=== PATIENT | female | born 1965 | race African-American/Black ===

== ENCOUNTER 2019-02-18 15:50 | Outpatient (CLI) | payer OTHER ==
--- NOTE | 2019-02-21 07:44 | MMO ---
Bilateral MAMMO Bilat Screen [facility]. CLINICAL HISTORY: Patient is 53 years old and is seen for screening. The patient has the following family history of breast cancer: aunt. The patient has no personal history of cancer. VIEWS: The views performed were: bilateral craniocaudal with tomosynthesis and bilateral mediolateral oblique with tomosynthesis. FILMS COMPARED: The present examination has been compared to a prior imaging study performed at [facility] on 02/13/2017. MAMMOGRAM FINDINGS: There are scattered fibroglandular densities. There is a stable lobular mass with associated coarse popcorn-like calcifications seen in the left breast. There are no suspicious masses, suspicious calcifications, or new areas of architectural distortion. IMPRESSION: THERE IS NO MAMMOGRAPHIC EVIDENCE OF MALIGNANCY. A ROUTINE FOLLOW-UP MAMMOGRAM IN 1 YEAR IS RECOMMENDED. THE RESULTS OF THIS EXAM WERE SENT TO THE PATIENT. ACR BI-RADS Category 2 - Benign finding MAMMOGRAPHY NOTE: 1. A negative mammogram report should not delay a biopsy if a dominant of clinically suspicious mass is present. 2. Approximately 10% to 15% of breast cancers are not detected by mammography. 3. Adenosis and dense breasts may obscure an underlying neoplasm.
== END 2019-02-18 15:51 | disposition home or self-care (01) ==
LOC: BICMAMMO 15:50
DX: Z12.31 Encounter for screening mammogram for malignant neoplasm of breast (principal); Z80.3 Family history of malignant neoplasm of breast
CPT/HCPCS: 77063; 77067

== ENCOUNTER 2019-09-27 17:57 | Inpatient (IN) | payer OTHER ==
[~2019-09-27 17:57] MED LIST: Iopamidol-370 76% 500 ML 1 ML ONE
[2019-09-27 18:23] LABS: #Basophils 0.1 thou/uL (0.0-0.2); #Eosinphils 0.2 thou/uL (0.0-0.7); #Lymphocytes 3.2 thou/uL (1.20-3.40); #Monocytes 0.4 thou/uL (0.11-0.59); %Basophils 0.8 % (0.0-1.0); %Eosinophils 1.8 % (0.0-10.0); %Lymphocytes 32.4 % (21.0-51.0); %Monocytes 4.1 % (0.0-10.0); %Neutrophils 60.8 % (42.0-75.0); Hemoglobin 11.8 g/dL (12.0-16.0); Mean Corpuscular HGB CONC 32.5 g/dL (32.0-36.0); Mean Corpuscular Hemoglobin 27.3 pg (27.0-31.0); Mean Corpuscular Volume 84.1 fL (78.0-98.0); Mean Platelet Volume 9.6 fL (7.4-10.4); Platelet Count 274 thou/uL (130-400); Red Blood Cell (RBC) Count 4.31 mill/uL (4.20-5.40); White Blood Cell (WBC) Count 9.8 thou/uL (4.8-10.8)
[2019-09-27 18:45] LABS: ALT (SGPT) 14 U/L (8-55); AST (SGOT) 15 U/L (5-34); Albumin 4.1 g/dL (3.5-5.0); Alkaline Phosphatase 94 U/L (40-110); Anion Gap 16 mmol/L (10-20); BUN (Urea Nitrogen) 16 mg/dL (9.8-20.1); Bilirubin, Total 0.3 mg/dL (0.2-1.2); Calc. Creatinine Clearance 0 mL/min (70-130); Calcium 9.2 mg/dL (7.8-10.44); Carbon Dioxide 24 mmol/L (22-29); Chloride 99 mmol/L (98-107); Estimated GFR-MDRD 65; Glucose 328 mg/dL (70-105); Lipase 62 U/L (8-78); Protein, Total 8.1 g/dL (6.0-8.3); Sodium 135 mmol/L (136-145)
--- NOTE | 2019-09-27 19:00 | RAD ---
PORTABLE CHEST: 09/27/19 HISTORY: Chest pain x1 week. Heart size and mediastinum are within normal limits. The lungs are clear of any infiltrates. No signi ficant bony findings. IMPRESSION: No active intrathoracic disease. POS: [facility]
[2019-09-27] MEDS ORDERED: Dextrose 50% Abboject 50 ML SYRINGE SLOW IVP PRN (20:17)
[2019-09-27] MEDS ORDERED: HYDROcodone/Acetaminophen 5/325 mg Tablet PO PRN (20:17)
[2019-09-27] MEDS ORDERED: Dextrose 5% in Water 1,000 ML IV PRN (20:17)
[2019-09-27] MEDS ORDERED: hydrALAZINE 20 MG/ML VIAL SLOW IVP PRN (20:20)
[2019-09-27] MEDS ORDERED: Morphine 2 MG/ML SYRINGE SLOW IVP PRN (20:20)
--- NOTE | 2019-09-27 20:58 | HP ---
PRESENTING CONSTANT: Chest pain. HISTORY OF PRESENT ILLNESS: Summer Camacho is a 54-year-old female with past medical history of hypertension, diabetes mellitus type 2 since 10 years, hyperlipidemia, who presented to the ED today because of recurrent chest pain since the last 1 week. Chest pain was initially on exertion that was progressively worsening and at rest. She describes the pain as a bandlike over the upper and across the chest wall. Nonradiating. She rates the pain as worse at about 10/10. Pain subsided a bit since presentation in the ED, and the pain is currently at 5/10. She denies any nausea, vomiting, or shortness of breath. She denies any recent travel. She states she has been having pain in her feet, but not in her calf since the last 3 weeks. She has been taking meloxicam daily for the feet pain. She denies any recent travel. She was started on estradiol for hot flashes symptoms 3 years ago post oophorectomy. There is no family history of CAD. She denies any previous tobacco use. The patient states she had similar chest pain symptoms and had a cardiac cath 3 years ago that shows about 40% lesion in the LAD. She has not had repeat testing since then. PAST MEDICAL HISTORY: Hypertension, diabetes, hyperlipidemia. PAST SURGICAL HISTORY: Significant for hysterectomy with bilateral oophorectomy. ALLERGIES: LISINOPRIL WELL PENICILLIN. HOME MEDICATIONS: See medication list that includes: 1. Metformin. 2. Tradjenta. 3. Levemir insulin. 4. Hydrochlorothiazide. 5. Multivitamin. 6. Estradiol. FAMILY HISTORY: She has a grand-uncle with history of coronary artery disease, but no immediate family with CAD or CVA. SOCIAL HISTORY: She resides in community. She is fully functional at baseline. No history of alcohol, tobacco, or illicit drug use. REVIEW OF SYSTEMS: All systems reviewed x14 were negative except as mentioned above. PHYSICAL EXAMINATION: VITAL SIGNS: Blood pressure of 152/91, pulse of 76, respiratory rate of 18, O2 saturation 95% on room air. GENERAL: Overweight middle-aged female, not in any distress. HEENT: Head is atraumatic, normocephalic. [place] conjunctivae and anicteric. NECK: No JVD. No carotid bruit. RESPIRATORY: Good air entry. No crepitation. CARDIOVASCULAR: S1, S2. Rate and rhythm regular. ABDOMEN: Full, soft, nontender. Bowel sounds positive. EXTREMITIES: No pedal edema. No calf tenderness. NEUROLOGIC: The patient is alert and conversant. No neurological focal motor deficit. LABORATORY DATA: Labs are reviewed. WBC 9.8, hemoglobin 11.8, sodium 135, creatinine 1.07. Troponin less than 0.01. Glucose 328. IMAGING DATA: Chest x-ray shows no active intrathoracic disease. EKG shows normal sinus rhythm, borderline T-wave flattening in lead IV. IMPRESSION: 1. Atypical chest pain. 2. Hypertension. 3. Diabetes mellitus with hyperglycemia. PLAN: We will admit the patient to tele observation. We will manage patient for the followin. Chest pain, may be due to acute coronary syndrome or unstable angina, but we will rule out PE given history of estradiol use. We will obtain CTA to rule out PE. We will do serial set of cardiac enzymes. We will switch patient for hydrochlorothiazide to metoprolol to lower the heart rate. We will obtain lipid panel in a.m. We will add nitroglycerin as well as start the patient on aspirin and Plavix now to see if relief of pain symptoms. The patient may need stress test if negative cardiac enzymes. 2. Hypertension, borderline. Follow with added metoprolol. 3. Diabetes mellitus, uncontrolled. We will start Levemir insulin sliding scale with Accu-Chek. We will start metformin [address] 4. DVT prophylaxis, subcutaneous Lovenox. 5. Advance directive, patient is a full code. TOTAL TIME SPENT: Greater than 60 minutes. Job ID: [id number]
[2019-09-27] MEDS ORDERED: Metoprolol Tartrate 25 MG TAB PO SCH (21:00)
--- NOTE | 2019-09-27 21:54 | CT ---
CT angiogram of chest performed with intravenous contrast enhancement with 3-D reconstructions HISTORY: Chest pain and shortness of breath. COMPARISON: None. FINDINGS: The lungs are clear of any infiltrative process. No pulmonary nodules or pleural effusions. The thoracic aorta is normal in caliber. There is slight nodularity in the anterior mediastinum this could represent residual thymic tissue or tiny nodes. The thoracic aorta is normal in caliber without signs of dissection. Coronary calcifications are pres ent. There is fair pulmonary artery opacification peripheral emboli are not definitely excluded but no central embolus is seen. The visualized liver parenchyma shows no focal findings. There is a small hiatal hernia is seen. IMPRESSION: 1. No CT evidence for pulmonary embolus. Smaller peripheral emboli are not excluded. 2. Coronary calcifications.
[2019-09-27 21:57] LABS: Troponin I Less than 0.010 ng/mL (< 0.028)
[2019-09-27] MEDS: Sodium Chloride 0.9% 1,000 ML IV SCH (22:17)
[2019-09-27] MEDS: Famotidine 20 MG TAB PO SCH (22:39)
[2019-09-27] MEDS: Insulin Glargine 25 UNITS in Pre-Filled Syringe 1 EACH SC SCH (23:44)
[2019-09-28] MEDS: Nitroglycerin 2% Ointment 1 INCH/1 GM Packet TOP SCH ×3 (00:36→13:36)
[2019-09-28 01:32] LABS: Troponin I Less than 0.010 ng/mL (< 0.028)
[2019-09-28 05:35] LABS: Anion Gap 15 mmol/L (10-20); BUN (Urea Nitrogen) 12 mg/dL (9.8-20.1); Calc. Creatinine Clearance 112 mL/min (70-130); Calcium 9.1 mg/dL (7.8-10.44); Carbon Dioxide 23 mmol/L (22-29); Chloride 100 mmol/L (98-107); Cholesterol 152 mg/dl (< 200 Desired); Estimated GFR-MDRD 87; Glucose 296 mg/dL (70-105); HDL Cholesterol 47 mg/dL (>60 Neg Risk); Sodium 134 mmol/L (136-145); Triglycerides 159 mg/dL (Less than 150)
[2019-09-28 05:36] LABS: Cardiac Risk 3.2 (Less than 4.5); LDL Cholesterol, Calculated 73 mg/dL
[2019-09-28] MEDS: HumaLOG 300 UNITS/3 ML VIAL SC PRN ×4 (06:06→21:09)
[2019-09-28 07:47] LABS: #Basophils 0.1 thou/uL (0.0-0.2); #Eosinphils 0.2 thou/uL (0.0-0.7); #Lymphocytes 2.6 thou/uL (1.20-3.40); #Monocytes 0.3 thou/uL (0.11-0.59); #Neutrophils 4.9 thou/uL (1.40-6.50); %Basophils 0.6 % (0.0-1.0); %Eosinophils 2.7 % (0.0-10.0); %Lymphocytes 31.9 % (21.0-51.0); %Monocytes 4.1 % (0.0-10.0); %Neutrophils 60.7 % (42.0-75.0); Hemoglobin 10.9 g/dL (12.0-16.0); Mean Corpuscular Hemoglobin 27.6 pg (27.0-31.0); Mean Corpuscular Volume 83.6 fL (78.0-98.0); Platelet Count 241 thou/uL (130-400); RBC Distribution Width 12.9 % (11.5-14.5); RBC Morphology Normal; Red Blood Cell (RBC) Count 3.97 mill/uL (4.20-5.40)
[2019-09-28] MEDS: Aspirin 325 mg Enteric Coated Tablet PO SCH (08:04)
[2019-09-28] MEDS: Carvedilol 3.125 MG TAB PO SCH ×2 (08:05→18:25)
[2019-09-28] MEDS: Famotidine 20 MG TAB PO SCH ×2 (08:05→21:11)
[2019-09-28] MEDS: Enoxaparin Sodium 40 MG/0.4 ML SYRINGE SC SCH (08:13)
[2019-09-28] MEDS ORDERED: Clopidogrel Bisulfate 75 MG TAB PO SCH (09:00)
[2019-09-28] MEDS ORDERED: ADENOSINE 60 MG/20 ML VIAL ONE (11:26)
[2019-09-28] MEDS: Sodium Chloride 0.9% 1,000 ML IV SCH (12:40)
--- NOTE | 2019-09-28 12:53 | PDOC.HOSPP ---
- Subjective Encounter Date: 09/28/19 Encounter Time: 12:30 Subjective: no chest pain or palp - Objective Vital Signs & Weight: Vital Signs (12 hours) Temp Pulse Resp BP BP Pulse Ox 09/28/19 11:36 97.4 F L 85 20 134/73 97 09/28/19 07:22 97.8 F 69 18 130/75 96 09/28/19 04:25 72 18 141/82 H 97 09/28/19 03:10 98 Weight Weight 199 lb 12.8 oz Result Diagrams: 09/28/19 04:46 09/28/19 04:46 Additional Labs: Accuchecks 09/28/19 09/27/19 11:42 22:41 POC Glucose 307 H 323 H Hospitalist ROS - Medication Medications: Active Medications Generic Name Dose Route Start Last Admin Trade Name Freq PRN Reason Stop Dose Admin Aspirin 325 mg 09/28/19 09:00 09/28/19 08:04 Ecotrin PO 325 mg DAILY ISABEL Administration Carvedilol 3.125 mg 09/28/19 08:00 09/28/19 08:05 Coreg PO 3.125 mg BID- ISABEL Administration Clopidogrel Bisulfate 75 mg 09/28/19 09:00 09/28/19 08:05 Plavix PO 75 mg DAILY ISABEL Administration Enoxaparin Sodium 40 mg 09/28/19 09:00 09/28/19 08:13 Lovenox SC Not Given 0900 ISABEL Famotidine 20 mg 09/27/19 21:00 09/28/19 08:05 Pepcid PO 20 mg BID ISABEL Administration Insulin Glargine 25 units/ 0.25 mls @ 0 mls/hr 09/27/19 21:00 09/27/19 23:44 Miscellaneous Medication SC 0.25 mls BID ISABEL Administration Insulin Human Lispro 0 units 09/27/19 20:17 09/28/19 12:37 Humalog SC 11 unit .AGGRESSIVE SLIDING PRN Administration Aggressive Correctional Scale Nitroglycerin 0.5 inch 09/27/19 22:00 09/28/19 05:00 Nitro-Bid 2% Ointment TOP Not Given Q8HR ISABEL - Exam General Appearance: NAD, awake alert Eye: PERRL, anicteric sclera ENT: no oropharyngeal lesions, moist mucosa Neck: supple, no JVD Heart: RRR, no murmur Respiratory: no wheezes, no rales Gastrointestinal: soft, non-tender, non-distended, normal bowel sounds Extremities: no cyanosis, no edema Neurological: cranial nerve grossly intact, no focal deficits Psychiatric: normal affect, A&O x 3 Hosp A/P (1) Chest pain Code(s): R07.9 - CHEST PAIN, UNSPECIFIED Status: Acute (2) HTN (hypertension) Code(s): I10 - ESSENTIAL (PRIMARY) HYPERTENSION Status: Chronic Qualifiers: Hypertension type: essential hypertension Qualified Code(s): I10 - Essential (primary) hypertension (3) Dyslipidemia Code(s): E78.5 - HYPERLIPIDEMIA, UNSPECIFIED Status: Chronic (4) DM type 2 (diabetes mellitus, type 2) Status: Chronic Qualifiers: Diabetes mellitus [facility] insulin use: with [facility] use (5) CAD (coronary artery disease) Code(s): I25.10 - ATHSCL HEART DISEASE OF [place] CORONARY ARTERY W/O ANG PCTRS Status: Chronic Qualifiers: Coronary Disease-Associated Artery/Lesion type: [place] artery [place] vs. transplanted heart: [place] heart Associated angina: without angina Qualified Code(s): I25.10 - Atherosclerotic heart disease of [place] coronary artery without angina pectoris - Plan prior cath >5yrs ago (not sure of exact time) had 40% stenosis in one of her coronary arteries for 2 day stress test continue asp, plavix, lantus, coreg, crestor, dc iv fluids for now hemostable
[2019-09-28] MEDS: Insulin Glargine 25 UNITS in Pre-Filled Syringe 1 EACH SC SCH ×2 (12:54→21:11)
[2019-09-28] MEDS: Acetaminophen 325 MG TAB PO PRN (21:14)
[2019-09-29] MEDS: Nitroglycerin 2% Ointment 1 INCH/1 GM Packet TOP SCH ×3 (01:01→15:02)
[2019-09-29] MEDS: HumaLOG 300 UNITS/3 ML VIAL SC PRN ×4 (05:49→21:50)
[2019-09-29] MEDS: Carvedilol 3.125 MG TAB PO SCH ×2 (09:24→16:57)
[2019-09-29] MEDS: Aspirin 325 mg Enteric Coated Tablet PO SCH (09:24)
[2019-09-29] MEDS: Famotidine 20 MG TAB PO SCH ×2 (09:24→21:49)
[2019-09-29] MEDS: Enoxaparin Sodium 40 MG/0.4 ML SYRINGE SC SCH ×2 (09:28→11:00)
[2019-09-29] MEDS: Insulin Glargine 25 UNITS in Pre-Filled Syringe 1 EACH SC SCH (09:28)
--- NOTE | 2019-09-29 09:31 | NM ---
NM Cardiac Stress W EF WF HISTORY: Chest pain COMPARISON: None. FINDINGS: Examination was performed using 30 mCi 90 9M technetium sestamibi on the stress and 33 mCi on the resting images. This shows a fixed defect in the apex extending slightly into the anterior and inferior santoyo. No ischemic change. Wall motion: There is hypokinesis of the apex. Left ventricular ejection fraction: The calcaneal left ventricular ejection fraction was 55%. IMPRESSION: Apical scar without evidence of ischemia.
--- NOTE | 2019-09-29 11:09 | PDOC.HOSPP ---
- Subjective Encounter Date: 09/29/19 Encounter Time: 09:15 Subjective: no chest pain or sob this am finished her stress test this am - Objective Vital Signs & Weight: Vital Signs (12 hours) Temp Pulse Resp BP BP Pulse Ox 09/29/19 07:23 98.6 F 74 16 128/80 96 09/29/19 04:30 67 18 130/79 96 Weight Weight 199 lb 12.8 oz I&O: 09/28/19 09/29/19 09/30/19 06:59 06:59 06:59 Intake Total 720 240 Balance 720 240 Result Diagrams: 09/28/19 04:46 09/28/19 04:46 Additional Labs: Accuchecks 09/29/19 09/29/19 09/28/19 10:37 05:51 21:11 POC Glucose 274 H 374 H 286 H 09/28/19 09/28/19 16:54 11:42 POC Glucose 280 H 307 H Hospitalist ROS - Medication Medications: Active Medications Generic Name Dose Route Start Last Admin Trade Name Freq PRN Reason Stop Dose Admin Acetaminophen 650 mg 09/27/19 20:17 09/28/19 21:14 Tylenol PO 650 mg Q4H PRN Administration Headache/Fever/Mild Pain (1-3) Aspirin 325 mg 09/28/19 09:00 09/29/19 09:24 Ecotrin PO 325 mg DAILY ISABEL Administration Carvedilol 3.125 mg 09/28/19 08:00 09/29/19 09:24 Coreg PO 3.125 mg BID-WM ISABEL Administration Enoxaparin Sodium 40 mg 09/28/19 09:00 09/29/19 11:00 Lovenox SC 40 mg 0900 ISABEL Administration Famotidine 20 mg 09/27/19 21:00 09/29/19 09:24 Pepcid PO 20 mg BID ISABEL Administration Insulin Glargine 25 units/ 0.25 mls @ 0 mls/hr 09/27/19 21:00 09/29/19 09:28 Miscellaneous Medication SC 0.25 mls BID ISABEL Administration Insulin Human Lispro 0 units 09/27/19 20:17 09/29/19 10:59 Humalog SC 9 unit .AGGRESSIVE SLIDING PRN Administration Aggressive [place] Scale Insulin Human Lispro 0 units 09/28/19 17:56 09/28/19 21:09 Humalog SC 3 unit .BEDTIME SLIDING SC PRN Administration BEDTIME SLIDING SCALE Protocol Nitroglycerin 0.5 inch 09/27/19 22:00 09/29/19 04:52 Nitro-Bid 2% Ointment TOP Not Given Q8HR ISABEL - Exam General Appearance: awake alert Eye: PERRL, anicteric sclera ENT: no oropharyngeal lesions, moist mucosa Neck: supple, no JVD Heart: RRR, no murmur Respiratory: no wheezes, no rales Gastrointestinal: soft, non-tender, non-distended, normal bowel sounds Extremities: no cyanosis, no edema Neurological: cranial nerve grossly intact, no focal deficits Psychiatric: normal affect, A&O x 3 Hosp A/P (1) Chest pain Code(s): R07.9 - CHEST PAIN, UNSPECIFIED Status: Acute Qualifiers: Ischemic chest pain type: unstable angina pectoris (2) HTN (hypertension) Code(s): I10 - ESSENTIAL (PRIMARY) HYPERTENSION Status: Chronic Qualifiers: Hypertension type: essential hypertension Qualified Code(s): I10 - Essential (primary) hypertension (3) Dyslipidemia Code(s): E78.5 - HYPERLIPIDEMIA, UNSPECIFIED Status: Chronic (4) DM type 2 (diabetes mellitus, type 2) Status: Chronic Qualifiers: Diabetes mellitus [employer] insulin use: with [employer] use (5) CAD (coronary artery disease) Code(s): I25.10 - ATHSCL HEART DISEASE OF [place] CORONARY ARTERY W/O ANG PCTRS Status: Chronic Qualifiers: Coronary Disease-Associated Artery/Lesion type: [place] artery [place] vs. transplanted heart: [place] heart Associated angina: without angina Qualified Code(s): I25.10 - Atherosclerotic heart disease of [place] coronary artery without angina pectoris - Plan stress test shows fixed defect in ant and apical areas, hypokinesis of apex, no reversible defect for cath in am, change status to inpatient, echo for lv function and wall motion. prior cath >5yrs ago (not sure of exact time) had 40% stenosis in one of her coronary arteries continue asp, plavix, increase lantus dose to 40u bid, coreg, crestor hemostable
--- NOTE | 2019-09-29 14:36 | CON ---
DATE OF CONSULTATION: HISTORY OF PRESENT ILLNESS: Janice Wheeler is a 54-year-old black female, admitted for evaluation of chest discomfort. She underwent cardiac catheterization by Dr. Meeks in June 2009. This revealed an ejection fraction of 60% to 66%. There was a 50% to 60% right posterior descending, 35% left main, and 70% second obtuse marginal. The LAD had a 40% stenosis in the proximal portion. Approximately one year ago, she stated that she started to have exertional chest pressure; however, this resolved. Now over the last 2 to 3 weeks. She has noted exertional chest pressure associated with shortness of breath, but no nausea, vomiting, or diaphoresis. If she stops her activity and rests, this would resolve in 15 minutes. She denies any resting or nocturnal episodes. She underwent adenosine Cardiolite testing. During adenosine infusion, she became short of breath and had downsloping ST segments in I, aVL, and V3 through V6. Cardiolite revealed a fixed defect in the apex extending slightly into the anterior and inferior wall but no definite evidence of ischemia. PAST MEDICAL HISTORY: Hypertension, diabetes, and hypercholesterolemia. MEDICATIONS: 1. Estradiol 2 mg daily. 2. Hydrochlorothiazide 25 daily. 3. Insulin. 4. Tradjenta 5 mg daily. 5. Metformin 1000 b.i.d. 6. Metoprolol 150 daily. 7. Omeprazole 20 mg daily. 8. Rosuvastatin 20 mg at bedtime. ALLERGIES: PENICILLIN. SOCIAL HISTORY: She does not smoke or drink. FAMILY HISTORY: Negative for coronary artery disease in the immediate family. REVIEW OF SYSTEMS: A 10-point review of systems unremarkable. PHYSICAL EXAMINATION: VITAL SIGNS: Blood pressure 141/80 and pulse 76. HEENT: PERRL. NECK: Supple. CHEST: Clear. CARDIAC: S1 and S2 normal without any S3, S4, or murmurs. Carotid upstrokes normal without bruits. ABDOMEN: Normal bowel sounds without tenderness or organomegaly. EXTREMITIES: Revealed no clubbing, cyanosis, or edema. NEUROLOGIC: Grossly intact. SKIN: Warm and dry. LABORATORY DATA: EKG revealed normal sinus rhythm with probable left ventricular hypertrophy. Nonspecific ST-segment changes. Cardiolite findings as noted above. Chest CTA revealed no evidence of pulmonary embolism. She did have coronary calcifications. Hemoglobin 10.9, hematocrit 33.2, and white count 8000. Sodium 134, potassium 4.0, chloride 100, carbon dioxide 23, BUN 12, creatinine 0.83, cholesterol 152, triglycerides 159, HDL 47, and LDL 73. Troponin I has been unremarkable. IMPRESSION: 1. History compatible with acute coronary syndrome. 2. Fixed apical defect on Cardiolite and ST-segment changes during adenosine infusion. 3. Coronary artery disease. She had a catheterization in June 2009. 4. Hypertension. 5. Hypercholesterolemia under poor control - LDL 73 in a diabetic with coronary artery disease. 6. Hypertension. PLAN: Given that she had a 35% left main, 10 years ago, she certainly may have disease that will need to be surgically treated. Therefore, I have discontinued Plavix, which would delay her undergoing bypass surgery. Rosuvastatin will be increased from 20 mg to 40 mg. It was recommended she undergo cardiac catheterization. Risks of this were discussed including , myocardial infarction, dye reaction, vascular injury, CVA, transfusion, limb loss, renal loss, etc. Risks of intervention with PTCA and stent placement discussed including , myocardial infarction, emergent CABG, restenosis, stent thrombosis, vessel perforation, etc. She has no history of gastrointestinal bleeding or stroke. She has no upcoming surgical procedures and overall, it is recommended that a drug-eluting stent be placed if needed. However, my main concern with 35% left main 10 years ago is that she will need CABG. Job ID: [id number] [facility]ITALKane
[2019-09-29] MEDS: Insulin Glargine 40 UNITS in Pre-Filled Syringe 1 EACH SC SCH (21:49)
[2019-09-29] MEDS: Rosuvastatin 20 MG TAB PO SCH (21:49)
[2019-09-30] MEDS: Nitroglycerin 2% Ointment 1 INCH/1 GM Packet TOP SCH ×2 (01:35→05:45)
[2019-09-30] MEDS: Aspirin 325 mg Enteric Coated Tablet PO SCH (05:45)
[2019-09-30] MEDS: Carvedilol 3.125 MG TAB PO SCH (05:45)
[2019-09-30] MEDS: Famotidine 20 MG TAB PO SCH ×2 (05:45→22:39)
[2019-09-30] MEDS: Enoxaparin Sodium 40 MG/0.4 ML SYRINGE SC SCH (05:46)
[2019-09-30] MEDS ORDERED: Sodium Chloride 0.9% 1,000 ML IV SCH ×2 (06:00→08:31)
[2019-09-30] MEDS ORDERED: Heparin (Artline) 1,000 ML ONE (07:20)
[2019-09-30] MEDS ORDERED: Heparin 10,000 UNITS/1 ML VIAL ONE (07:20)
[2019-09-30 07:47] LABS: #Eosinphils 0.2 thou/uL (0.0-0.7); #Lymphocytes 2.1 thou/uL (1.20-3.40); #Monocytes 0.4 thou/uL (0.11-0.59); #Neutrophils 5.6 thou/uL (1.40-6.50); %Basophils 0.5 % (0.0-1.0); %Eosinophils 2.2 % (0.0-10.0); %Lymphocytes 25.6 % (21.0-51.0); %Monocytes 4.8 % (0.0-10.0); %Neutrophils 66.9 % (42.0-75.0); Mean Corpuscular HGB CONC 32.8 g/dL (32.0-36.0); Mean Corpuscular Hemoglobin 27.6 pg (27.0-31.0); Mean Corpuscular Volume 83.9 fL (78.0-98.0); Mean Platelet Volume 9.4 fL (7.4-10.4); Platelet Count 265 thou/uL (130-400); Red Blood Cell (RBC) Count 4.35 mill/uL (4.20-5.40); White Blood Cell (WBC) Count 8.3 thou/uL (4.8-10.8)
[2019-09-30] MEDS ORDERED: Midazolam HCl 2 mg/2 ml Vial ONE (07:54)
[2019-09-30] MEDS ORDERED: Fentanyl 100 MCG/2 ML VIAL ONE (07:54)
[2019-09-30 08:01] LABS: Anion Gap 11 mmol/L (10-20); BUN (Urea Nitrogen) 11 mg/dL (9.8-20.1); Calc. Creatinine Clearance 116 mL/min (70-130); Calcium 9.4 mg/dL (7.8-10.44); Carbon Dioxide 26 mmol/L (22-29); Chloride 100 mmol/L (98-107); Estimated GFR-MDRD Greater than 90; Glucose 265 mg/dL (70-105); Potassium 4.3 mmol/L (3.5-5.1); Sodium 133 mmol/L (136-145)
[2019-09-30] MEDS ORDERED: Protamine Sulfate 50 MG/5 ML VIAL ONE (08:11)
[2019-09-30] MEDS ORDERED: Acetaminophen/Codeine 30-300mg Tablet PO PRN ×2 (08:29)
[2019-09-30] MEDS ORDERED: Sodium Chloride 0.9% 200 ML IV PRN (08:29)
[2019-09-30] MEDS ORDERED: Nitroglycerin 0.4 MG TAB (25 Tab Bottle) SL PRN (08:29)
[2019-09-30] MEDS ORDERED: Carvedilol 3.125 MG TAB PO SCH (09:00)
[2019-09-30] MEDS: Insulin Glargine 40 UNITS in Pre-Filled Syringe 1 EACH SC SCH (10:24)
[2019-09-30 10:45] LABS: Hemoglobin A1c 10.2 % (4.0-6.0)
--- NOTE | 2019-09-30 11:40 | PDOC.HOSPP ---
- Subjective Encounter Date: 09/30/19 Encounter Time: 11:00 Subjective: no chest pain or sob had cath this am - Objective Vital Signs & Weight: Vital Signs (12 hours) Temp Pulse Resp BP Pulse Ox 09/30/19 04:00 97.6 F 83 17 138/86 97 Weight Weight 199 lb 12.8 oz I&O: 09/29/19 09/30/19 10/01/19 06:59 06:59 06:59 Intake Total 720 960 Balance 720 960 Result Diagrams: 09/30/19 07:30 09/30/19 07:30 Additional Labs: Accuchecks 09/29/19 09/29/19 21:37 17:49 POC Glucose 312 H 266 H Hospitalist ROS - Medication Medications: Active Medications Generic Name Dose Route Start Last Admin Trade Name Freq PRN Reason Stop Dose Admin Acetaminophen 650 mg 09/27/19 20:17 09/28/19 21:14 Tylenol PO 650 mg Q4H PRN Administration Headache/Fever/Mild Pain (1-3) Aspirin 325 mg 09/28/19 09:00 09/30/19 05:45 Ecotrin PO 325 mg DAILY ISABEL Administration Famotidine 20 mg 09/27/19 21:00 09/30/19 05:45 Pepcid PO 20 mg BID ISABEL Administration Insulin Human Lispro 0 units 09/27/19 20:17 09/29/19 18:35 Humalog SC 9 unit .AGGRESSIVE SLIDING PRN Administration Aggressive [employer]al Scale Insulin Human Lispro 0 units 09/28/19 17:56 09/29/19 21:50 Humalog SC 4 unit .BEDTIME SLIDING SC PRN Administration BEDTIME SLIDING SCALE Protocol Rosuvastatin Calcium 40 mg 09/29/19 21:00 09/29/19 21:49 Crestor PO 40 mg HS ISABEL Administration - Exam General Appearance: NAD, awake alert Eye: PERRL, anicteric sclera ENT: no oropharyngeal lesions, moist mucosa Neck: supple, no JVD Heart: RRR, no murmur Respiratory: no wheezes, no rales Gastrointestinal: soft, non-tender, non-distended, normal bowel sounds Extremities: no cyanosis, no edema Neurological: cranial nerve grossly intact, no focal deficits Psychiatric: normal affect, A&O x 3 Hosp A/P (1) CAD (coronary artery disease) Code(s): I25.10 - ATHSCL HEART DISEASE OF [place] CORONARY ARTERY W/O ANG PCTRS Status: Chronic Qualifiers: Coronary Disease-Associated Artery/Lesion type: [place] artery [place] vs. transplanted heart: [place] heart Associated angina: without angina Qualified Code(s): I25.10 - Atherosclerotic heart disease of [place] coronary artery without angina pectoris (2) Chest pain Code(s): R07.9 - CHEST PAIN, UNSPECIFIED Status: Acute Qualifiers: Ischemic chest pain type: unstable angina pectoris (3) HTN (hypertension) Code(s): I10 - ESSENTIAL (PRIMARY) HYPERTENSION Status: Chronic Qualifiers: Hypertension type: essential hypertension Qualified Code(s): I10 - Essential (primary) hypertension (4) Dyslipidemia Code(s): E78.5 - HYPERLIPIDEMIA, UNSPECIFIED Status: Chronic (5) DM type 2 (diabetes mellitus, type 2) Status: Chronic Qualifiers: Diabetes mellitus terminal computer operator insulin use: with terminal computer operator use - Plan stress test shows fixed defect in ant and apical areas, hypokinesis of apex, no reversible defect Cath shows 3 vessel cad for cabg continue asp, increase lantus dose to 60u bid, coreg, crestor, add glipizide 5mg bid. hemostable
--- NOTE | 2019-09-30 11:42 | CON ---
DATE OF CONSULTATION: 09/30/2019 REASON FOR CONSULTATION: Evaluate the patient for coronary artery bypass grafting. HISTORY OF PRESENT ILLNESS: Ms. Wheeler is a 54-year-old woman, who over the last years had a couple of episodes of chest pain, tightness, and shortness of breath. She had a recent episode while she was at work. This brought her to the emergency department, where she was evaluated. She was given Plavix in the emergency department. She was evaluated with a stress test, which showed an apical scar with an ejection fraction of 55%. She was seen by Dr. Cullen yesterday, who scheduled her for cardiac catheterization today. This showed severe three-vessel disease with an ejection fraction of approximately 40%. I have been asked to see her to discuss coronary artery bypass grafting. PAST MEDICAL HISTORY: 1. Diabetes mellitus. 2. Hypertension. 3. Dyslipidemia. PAST SURGICAL HISTORY: 1. Hysterectomy. 2. Three hernia repairs. ALLERGIES: 1. LISINOPRIL, WHICH CAUSED LIP SWELLING. 2. PENICILLIN, WHICH CAUSED HIVES AND HAND SWELLING. 3. ALEVE. MEDICATIONS: At home; 1. Metformin 1000 mg b.i.d. 2. Crestor 20 mg at bedtime. 3. Omeprazole 20 mg daily. 4. Toprol-XL 150 mg daily. 5. Tradjenta 5 mg daily. 6. Detemir insulin 100 units q.a.m., 85 units at bedtime. 7. Hydrochlorothiazide 25 mg daily. 8. Estradiol 2 mg daily. REVIEW OF SYSTEMS: A 10-point review of systems is performed, is negative except as above. PHYSICAL EXAMINATION: GENERAL: This is a well-developed, well-nourished moderately obese woman, resting comfortably on the telemetry unit. VITAL SIGNS: Her height is 5 feet 8 inches, weight is 199 pounds. BSA is 2.09. Temperature is 97.6, pulse is 83 and regular, and blood pressure is 138/86. HEENT: Sclerae nonicteric. Pupils are equal and round bilaterally. NECK: Supple. She has no carotid bruits. CHEST: Clear bilaterally. HEART: Rhythm is regular without murmur. ABDOMEN: Soft and nontender. EXTREMITIES: No cyanosis, clubbing, or edema. VASCULAR: She has palpable carotid, radial, femoral, and dorsalis pedis pulses bilaterally. PSYCHIATRIC: She is awake, alert, and oriented to person, place, and time. LABORATORY DATA: Of note, last blood sugar is 266. Her creatinine is 0.83, potassium is 4.0. Hemoglobin is 12.0, platelet count is 265,000. ASSESSMENT AND PLAN: A 54-year-old woman with severe three-vessel disease. She received Plavix at admission and will need to wait a week to have coronary artery bypass grafting. I have discussed coronary artery bypass grafting with her in detail. She needs LAD, OM, PDA, and PL branch bypasses. Ejection fraction is 40% to 50%. We will make plans for early next week for bypass. Job ID: [id number]
[2019-09-30] MEDS: HumaLOG 300 UNITS/3 ML VIAL SC PRN ×2 (12:43→17:39)
[2019-09-30] MEDS ORDERED: Iopamidol 370 76% 50 ML VIAL FS ONE (14:29)
[2019-09-30] MEDS ORDERED: Iopamidol 370 76% 100 ML VIAL ONE (14:29)
--- NOTE | 2019-09-30 14:34 | EKG ---
Test Reason : Blood Pressure : / mmHG Vent. Rate : 084 BPM Atrial Rate : 084 BPM P-R Int : 176 ms QRS Dur : 086 ms QT Int : 374 ms P-R-T Axes : 041 -06 012 degrees QTc Int : 441 ms Normal sinus rhythm Possible Left atrial enlargement Left ventricular hypertrophy Nonspecific ST abnormality Abnormal ECG Confirmed by MICK ARIZA DO ([id number]), editor trade journal BARBARA GROSS ([id number]) on 09/30/2019 2:33:26 PM Referred By: Confirmed By:MICK ARIZA DO
[2019-09-30] MEDS: glipiZIDE 5 MG TAB PO SCH (17:36)
[2019-09-30] MEDS: Carvedilol 6.25 MG TAB PO SCH (17:36)
[2019-09-30] MEDS ORDERED: Insulin Glargine 60 UNITS in Pre-Filled Syringe 1 EACH SC SCH (21:00)
[2019-09-30] MEDS: Rosuvastatin 20 MG TAB PO SCH (22:39)
[2019-10-01] MEDS: glipiZIDE 5 MG TAB PO SCH ×2 (08:35→17:58)
[2019-10-01] MEDS: Carvedilol 6.25 MG TAB PO SCH ×2 (08:35→17:58)
[2019-10-01] MEDS: Famotidine 20 MG TAB PO SCH ×2 (08:35→20:05)
[2019-10-01] MEDS: Aspirin 325 mg Enteric Coated Tablet PO SCH (08:35)
[2019-10-01] MEDS: HumaLOG 300 UNITS/3 ML VIAL SC PRN ×3 (08:36→17:59)
[2019-10-01] MEDS: Insulin Glargine 80 UNITS in Pre-Filled Syringe SC SCH ×2 (09:40→21:54)
--- NOTE | 2019-10-01 12:59 | PDOC.HOSPP ---
- Subjective Encounter Date: 10/01/19 Encounter Time: 11:30 Subjective: no chest pain or sob or palp is ambulating in hallway and room - Objective Vital Signs & Weight: Vital Signs (12 hours) Temp Pulse Resp BP Pulse Ox 10/01/19 12:00 98.4 F 90 16 128 H 10/01/19 08:05 95 10/01/19 08:00 97.4 F L 76 15 129/80 95 10/01/19 04:15 97.6 F 84 14 113/62 95 Weight Weight 211 lb I&O: 09/30/19 10/01/19 10/02/19 06:59 06:59 06:59 Intake Total 960 2075 Output Total 400 Balance 960 1675 Result Diagrams: 09/30/19 07:30 09/30/19 07:30 Additional Labs: Accuchecks 10/01/19 10/01/19 09/30/19 11:33 05:36 17:11 POC Glucose 273 H 260 H 262 H Hospitalist ROS - Medication Medications: Active Medications Generic Name Dose Route Start Last Admin Trade Name Freq PRN Reason Stop Dose Admin Acetaminophen 650 mg 09/27/19 20:17 09/28/19 21:14 Tylenol PO 650 mg Q4H PRN Administration Headache/Fever/Mild Pain (1-3) Aspirin 325 mg 09/28/19 09:00 10/01/19 08:35 Ecotrin PO 325 mg DAILY ISABEL Administration Carvedilol 6.25 mg 09/30/19 17:00 10/01/19 08:35 Coreg PO 6.25 mg BID-WM ISABEL Administration Famotidine 20 mg 09/27/19 21:00 10/01/19 08:35 Pepcid PO 20 mg BID ISABEL Administration Glipizide 5 mg 09/30/19 16:30 10/01/19 08:35 Glucotrol PO 5 mg BID-AC ISABEL Administration Insulin Glargine 80 units/ 0.8 mls @ 0 mls/hr 10/01/19 07:41 10/01/19 09:40 Miscellaneous Medication SC 0.8 mls BID ISABEL Administration As Directed Insulin Human Lispro 0 units 09/27/19 20:17 10/01/19 11:58 Humalog SC 9 unit .AGGRESSIVE SLIDING PRN Administration Aggressive Correctional Scale Insulin Human Lispro 0 units 09/28/19 17:56 09/29/19 21:50 Humalog SC 4 unit .BEDTIME SLIDING SC PRN Administration BEDTIME SLIDING SCALE Protocol Rosuvastatin Calcium 40 mg 09/29/19 21:00 09/30/19 22:39 Crestor PO 40 mg HS ISABEL Administration - Exam General Appearance: NAD, awake alert Eye: PERRL, anicteric sclera ENT: no oropharyngeal lesions, moist mucosa Neck: supple, no JVD Heart: RRR, no murmur Respiratory: no wheezes, no rales, no ronchi Gastrointestinal: soft, non-tender, non-distended, normal bowel sounds Extremities: no cyanosis, no edema Neurological: cranial nerve grossly intact, no focal deficits Psychiatric: normal affect, A&O x 3 Hosp A/P (1) CAD (coronary artery disease) Code(s): I25.10 - ATHSCL HEART DISEASE OF [place] CORONARY ARTERY W/O ANG PCTRS Status: Chronic Qualifiers: Coronary Disease-Associated Artery/Lesion type: [place] artery [place] vs. transplanted heart: [place] heart Associated angina: without angina Qualified Code(s): I25.10 - Atherosclerotic heart disease of [place] coronary artery without angina pectoris (2) Chest pain Code(s): R07.9 - CHEST PAIN, UNSPECIFIED Status: Acute Qualifiers: Ischemic chest pain type: unstable angina pectoris (3) HTN (hypertension) Code(s): I10 - ESSENTIAL (PRIMARY) HYPERTENSION Status: Chronic Qualifiers: Hypertension type: essential hypertension Qualified Code(s): I10 - Essential (primary) hypertension (4) Dyslipidemia Code(s): E78.5 - HYPERLIPIDEMIA, UNSPECIFIED Status: Chronic (5) DM type 2 (diabetes mellitus, type 2) Status: Chronic Qualifiers: Diabetes mellitus half-way insulin use: with terminal gauger supervisor use Diabetes mellitus complication status: with hyperglycemia Qualified Code(s): E11.65 - Type 2 diabetes mellitus with hyperglycemia; Z79.4 - detention (current) use of insulin - Plan stress test shows fixed defect in ant and apical areas, hypokinesis of apex, no reversible defect Cath shows 3 vessel cad for cabg continue asp, increase lantus dose to 80u bid, coreg, crestor, glipizide 5mg bid , add home dose metformin 1g bid and linaglutide daily. hemostable informed staff to show her cabg video, I have educated her about cabg and post procedure recovery etc.
[2019-10-01] MEDS: metFORMIN 500 MG TAB PO SCH (17:58)
[2019-10-01] MEDS: Rosuvastatin 20 MG TAB PO SCH (20:05)
[2019-10-02] MEDS: glipiZIDE 5 MG TAB PO SCH ×2 (07:22→17:09)
[2019-10-02] MEDS: metFORMIN 500 MG TAB PO SCH ×2 (07:22→17:09)
[2019-10-02] MEDS: Carvedilol 6.25 MG TAB PO SCH ×2 (07:23→17:09)
[2019-10-02] MEDS: Alogliptin 25 MG TAB PO SCH (09:45)
[2019-10-02] MEDS: Aspirin 325 mg Enteric Coated Tablet PO SCH (09:45)
[2019-10-02] MEDS: Famotidine 20 MG TAB PO SCH ×2 (09:45→20:40)
[2019-10-02] MEDS: HumaLOG 300 UNITS/3 ML VIAL SC PRN ×2 (09:46→17:09)
[2019-10-02] MEDS: Insulin Glargine 80 UNITS in Pre-Filled Syringe SC SCH ×2 (09:46→20:40)
--- NOTE | 2019-10-02 11:00 | PQF ---
BRIGITTE LONG, ERIN SCHMITZ MD [id number] [id number] CLINICAL DOCUMENTATION IMPROVEMENT CLARIFICATION FORM: ICD-10 Updated PLEASE DO AN ADDENDUM TO THE PROGRESS NOTE WITH ANY DOCUMENTATION UPDATES OR ADDITIONS AND CARRY THROUGH TO DC SUMMARY. THANK YOU. DATE: 10/02/19 ATTN: Dr. Lott Please exercise your independent, professional judgment in responding to the clarification form. Clinical indicators are provided on the bottom of this form for your review Please check appropriate box(s): [ ] Hyponatremia please specify etiology, if known [ ] Hyponatremia due to SIADH (Syndrome of Inappropriate Secretion of Antidiuretic Hormone) [ x ] Other diagnosis _mild low sod of no significance [ ] Unable to determine In addition, please specify: Present on Admission (POA): [ ] Yes [ ] No [ ] Unable to determine CLINICAL INDICATORS - SIGNS / SYMPTOMS / LABS / RESULTS AND LOCATION IN EMR Na level--> 09/28 NA 134; 09/30 NA 133 per labs RISK FACTORS / RESULTS AND LOCATION IN EMR Dehydration--> Heart cath with contrast 09/30 per orders TREATMENTS / RESULTS AND LOCATION IN EMR IV fluids--> 09/27-09/28 NS at 75; 09/30 NS at 100 per orders labs 09/28, 09/30 per orders (This form is maintained as a part of the permanent medical record) 2014 [employer] All Rights Reserved Hyun Georges RN, BSN, CCDS [email or web address]
[2019-10-02] MEDS ORDERED: Bisacodyl 10 MG SUPP PR PRN (12:09)
--- NOTE | 2019-10-02 12:43 | PDOC.HOSPP ---
- Subjective Encounter Date: 10/02/19 Encounter Time: 09:30 Subjective: no sob or chest pain is ambulating in hallway - Objective Vital Signs & Weight: Vital Signs (12 hours) Temp Pulse Resp BP BP Pulse Ox 10/02/19 11:42 98.1 F 98 20 129/86 97 10/02/19 07:16 97.5 F L 86 15 141/85 H 98 10/02/19 04:24 97.5 F L 88 16 126/73 93 L Weight Weight 209 lb 4.8 oz I&O: 10/01/19 10/02/19 10/03/19 06:59 06:59 06:59 Intake Total 2075 990 Output Total 400 800 Balance 1675 190 Result Diagrams: 09/30/19 07:30 09/30/19 07:30 Additional Labs: Accuchecks 10/02/19 10/01/19 10/01/19 06:02 20:50 17:23 POC Glucose 218 H 319 H 291 H 09/30/19 21:11 POC Glucose 175 H Hospitalist ROS - Medication Medications: Active Medications Generic Name Dose Route Start Last Admin Trade Name Freq PRN Reason Stop Dose Admin Acetaminophen 650 mg 09/27/19 20:17 09/28/19 21:14 Tylenol PO 650 mg Q4H PRN Administration Headache/Fever/Mild Pain (1-3) Alogliptin Benzoate 25 mg 10/02/19 09:00 10/02/19 09:45 Alogliptin PO 25 mg DAILY ISABEL Administration Aspirin 325 mg 09/28/19 09:00 10/02/19 09:45 Ecotrin PO 325 mg DAILY ISABEL Administration Carvedilol 6.25 mg 09/30/19 17:00 10/02/19 07:23 Coreg PO 6.25 mg BID-WM ISABEL Administration Famotidine 20 mg 09/27/19 21:00 10/02/19 09:45 Pepcid PO 20 mg BID ISABEL Administration Glipizide 5 mg 09/30/19 16:30 10/02/19 07:22 Glucotrol PO 5 mg BID-AC ISABEL Administration Insulin Glargine 80 units/ 0.8 mls @ 0 mls/hr 10/01/19 07:41 10/02/19 09:46 Miscellaneous Medication SC 0.8 mls BID ISABEL Administration As Directed Insulin Human Lispro 0 units 09/27/19 20:17 10/02/19 09:46 Humalog SC 6 unit .AGGRESSIVE SLIDING PRN Administration Aggressive Correctional Scale Insulin Human Lispro 0 units 09/28/19 17:56 09/29/19 21:50 Humalog SC 4 unit .BEDTIME SLIDING SC PRN Administration BEDTIME SLIDING SCALE Protocol Metformin HCl 1,000 mg 10/01/19 17:00 10/02/19 07:22 Glucophage PO 1,000 mg BID-WM ISABEL Administration Rosuvastatin Calcium 40 mg 09/29/19 21:00 10/01/19 20:05 Crestor PO 40 mg HS ISABEL Administration - Exam General Appearance: awake alert Eye: PERRL, anicteric sclera ENT: no oropharyngeal lesions, moist mucosa Neck: supple, no JVD Heart: RRR, no murmur Respiratory: no wheezes, no rales Gastrointestinal: soft, non-tender, non-distended, normal bowel sounds Extremities: no cyanosis, no edema Neurological: cranial nerve grossly intact, no focal deficits Psychiatric: normal affect, A&O x 3 Hosp A/P (1) CAD (coronary artery disease) Code(s): I25.10 - ATHSCL HEART DISEASE OF [place] CORONARY ARTERY W/O ANG PCTRS Status: Chronic Qualifiers: Coronary Disease-Associated Artery/Lesion type: [place] artery [place] vs. transplanted heart: [place] heart Associated angina: without angina Qualified Code(s): I25.10 - Atherosclerotic heart disease of [place] coronary artery without angina pectoris (2) Chest pain Code(s): R07.9 - CHEST PAIN, UNSPECIFIED Status: Acute Qualifiers: Ischemic chest pain type: unstable angina pectoris (3) HTN (hypertension) Code(s): I10 - ESSENTIAL (PRIMARY) HYPERTENSION Status: Chronic Qualifiers: Hypertension type: essential hypertension Qualified Code(s): I10 - Essential (primary) hypertension (4) Dyslipidemia Code(s): E78.5 - HYPERLIPIDEMIA, UNSPECIFIED Status: Chronic (5) DM type 2 (diabetes mellitus, type 2) Status: Chronic Qualifiers: Diabetes mellitus care home insulin use: with care home use Diabetes mellitus complication status: with hyperglycemia Qualified Code(s): E11.65 - Type 2 diabetes mellitus with hyperglycemia; Z79.4 - emt intermediate (current) use of insulin - Plan stress test shows fixed defect in ant and apical areas, hypokinesis of apex, no reversible defect Cath shows 3 vessel cad for cabg continue asp, increase lantus dose to 80u bid, coreg, crestor, glipizide 5mg bid , add home dose metformin 1g bid and linaglutide daily. hemostable informed staff to show her cabg video, I have educated her about cabg and post procedure recovery etc. Suggest to wait 24hrs before further increases in dm meds
[2019-10-02] MEDS ORDERED: Zolpidem Tartrate 5 MG TAB PO PRN (15:09)
[2019-10-02] MEDS ORDERED: Communication Order-Pharmacy FS ONE (15:09)
[2019-10-02] MEDS: Nitroglycerin 2% Ointment 1 INCH/1 GM Packet TOP SCH (20:41)
[2019-10-02] MEDS: Docusate 100 MG CAP PO SCH (20:41)
[2019-10-02] MEDS: Rosuvastatin 20 MG TAB PO SCH (20:41)
[2019-10-02] MEDS: Enoxaparin Sodium 100 MG/ML SYRINGE SC SCH (20:41)
[2019-10-03] MEDS: glipiZIDE 5 MG TAB PO SCH ×2 (08:48→17:24)
[2019-10-03] MEDS: Famotidine 20 MG TAB PO SCH ×2 (08:48→21:11)
[2019-10-03] MEDS: Alogliptin 25 MG TAB PO SCH (08:48)
[2019-10-03] MEDS: Polyethylene Glycol 3350 17 GM Packet PO SCH (08:48)
[2019-10-03] MEDS: Aspirin 325 mg Enteric Coated Tablet PO SCH (08:48)
[2019-10-03] MEDS: Carvedilol 6.25 MG TAB PO SCH ×2 (08:49→17:24)
[2019-10-03] MEDS: Nitroglycerin 2% Ointment 1 INCH/1 GM Packet TOP SCH ×2 (08:49→21:13)
[2019-10-03] MEDS: Docusate 100 MG CAP PO SCH ×2 (08:49→21:11)
[2019-10-03] MEDS: metFORMIN 500 MG TAB PO SCH ×2 (08:49→17:24)
[2019-10-03] MEDS: Enoxaparin Sodium 100 MG/ML SYRINGE SC SCH ×2 (08:49→21:15)
[2019-10-03] MEDS: Insulin Glargine 80 UNITS in Pre-Filled Syringe SC SCH ×2 (08:50→21:13)
--- NOTE | 2019-10-03 15:48 | PDOC.HOSPP ---
- Subjective Encounter Date: 10/03/19 Encounter Time: 11:00 Subjective: no chest pain or palp or sob is amb in hallway - Objective Vital Signs & Weight: Vital Signs (12 hours) Temp Pulse Resp BP BP Pulse Ox 10/03/19 11:03 97.5 F L 95 12 131/85 99 10/03/19 07:55 98 10/03/19 07:53 97.8 F 98 17 113/75 98 10/03/19 03:57 97.3 F L 98 16 112/69 94 L Weight Weight 209 lb 4.8 oz I&O: 10/02/19 10/03/19 10/04/19 06:59 06:59 06:59 Intake Total 990 600 Output Total 800 250 Balance 190 350 Result Diagrams: 09/30/19 07:30 09/30/19 07:30 Additional Labs: Accuchecks 10/03/19 10/03/19 10/02/19 10:39 06:00 16:56 POC Glucose 156 H 213 H 164 H 10/02/19 10:55 POC Glucose 179 H Hospitalist ROS - Medication Medications: Active Medications Generic Name Dose Route Start Last Admin Trade Name Freq PRN Reason Stop Dose Admin Acetaminophen 650 mg 09/27/19 20:17 09/28/19 21:14 Tylenol PO 10/06/19 08:59 650 mg Q4H PRN Administration Headache/Fever/Mild Pain (1-3) Alogliptin Benzoate 25 mg 10/02/19 09:00 10/03/19 08:48 Alogliptin PO 10/06/19 08:59 25 mg DAILY ISABEL Administration Aspirin 325 mg 09/28/19 09:00 10/03/19 08:48 Ecotrin PO 10/06/19 08:59 325 mg DAILY ISABEL Administration Carvedilol 6.25 mg 09/30/19 17:00 10/03/19 08:49 Coreg PO 6.25 mg BID-WM ISABEL Administration Docusate Sodium 100 mg 10/02/19 21:00 10/03/19 08:49 Colace PO 10/06/19 08:59 100 mg BID ISABEL Administration Enoxaparin Sodium 100 mg 10/02/19 21:00 10/03/19 08:49 Lovenox SC 10/05/19 06:00 100 mg 0900,2100 ISABEL Administration Famotidine 20 mg 09/27/19 21:00 10/03/19 08:48 Pepcid PO 10/06/19 08:59 20 mg BID ISABEL Administration Glipizide 5 mg 09/30/19 16:30 10/03/19 08:48 Glucotrol PO 10/06/19 08:59 5 mg BID-AC ISABEL Administration Insulin Glargine 80 units/ 0.8 mls @ 0 mls/hr 10/01/19 07:41 10/03/19 08:50 Miscellaneous Medication SC 10/06/19 08:59 0.8 mls BID ISABEL Administration As Directed Insulin Human Lispro 0 units 09/27/19 20:17 10/02/19 17:09 Humalog SC 10/06/19 08:59 3 unit .AGGRESSIVE SLIDING PRN Administration Aggressive Correctional Scale Insulin Human Lispro 0 units 09/28/19 17:56 09/29/19 21:50 Humalog SC 10/06/19 08:59 4 unit .BEDTIME SLIDING SC PRN Administration BEDTIME SLIDING SCALE Protocol Metformin HCl 1,000 mg 10/01/19 17:00 10/03/19 08:49 Glucophage PO 10/06/19 08:59 1,000 mg BID-WM ISABEL Administration Nitroglycerin 1 inch 10/02/19 21:00 10/03/19 08:49 Nitro-Bid 2% Ointment TOP 10/06/19 08:59 1 inch BID ISABEL Administration Polyethylene Glycol 17 gm 10/03/19 09:00 10/03/19 08:48 Miralax PO 10/06/19 08:59 17 gm DAILY ISABEL Administration Rosuvastatin Calcium 40 mg 09/29/19 21:00 10/02/19 20:41 Crestor PO 10/06/19 08:59 40 mg HS ISABEL Administration - Exam General Appearance: awake alert Eye: PERRL, anicteric sclera ENT: no oropharyngeal lesions, moist mucosa Neck: supple, no JVD Heart: RRR, no murmur Respiratory: no wheezes, no rales Gastrointestinal: soft, non-tender, non-distended, normal bowel sounds Extremities: no cyanosis, no edema Neurological: cranial nerve grossly intact, no focal deficits Psychiatric: normal affect, A&O x 3 Hosp A/P (1) CAD (coronary artery disease) Code(s): I25.10 - ATHSCL HEART DISEASE OF [place] CORONARY ARTERY W/O ANG PCTRS Status: Chronic Qualifiers: Coronary Disease-Associated Artery/Lesion type: [place] artery [place] vs. transplanted heart: [place] heart Associated angina: without angina Qualified Code(s): I25.10 - Atherosclerotic heart disease of [place] coronary artery without angina pectoris (2) Chest pain Code(s): R07.9 - CHEST PAIN, UNSPECIFIED Status: Acute Qualifiers: Ischemic chest pain type: unstable angina pectoris (3) HTN (hypertension) Code(s): I10 - ESSENTIAL (PRIMARY) HYPERTENSION Status: Chronic Qualifiers: Hypertension type: essential hypertension Qualified Code(s): I10 - Essential (primary) hypertension (4) Dyslipidemia Code(s): E78.5 - HYPERLIPIDEMIA, UNSPECIFIED Status: Chronic (5) DM type 2 (diabetes mellitus, type 2) Status: Chronic Qualifiers: Diabetes mellitus middle or intermediate school principal insulin use: with middle or intermediate school principal use Diabetes mellitus complication status: with hyperglycemia Qualified Code(s): E11.65 - Type 2 diabetes mellitus with hyperglycemia; Z79.4 - predatory animal exterminator (current) use of insulin - Plan stress test shows fixed defect in ant and apical areas, hypokinesis of apex, no reversible defect Cath shows 3 vessel cad for cabg on 10/06/2019 or 10/07 continue asp, increase lantus dose to 80u bid, coreg, crestor, glipizide 5mg bid , home dose metformin 1g bid and linaglutide daily. On full dose lovenox per cardiology adv hemostable she has seen cabg patient info video, I have educated her about cabg and post procedure recovery etc. dm is fairly well controlled now
[2019-10-03] MEDS: Rosuvastatin 20 MG TAB PO SCH (21:11)
[2019-10-04] MEDS: Docusate 100 MG CAP PO SCH ×2 (08:55→20:27)
[2019-10-04] MEDS: metFORMIN 500 MG TAB PO SCH ×2 (08:56→17:30)
[2019-10-04] MEDS: Alogliptin 25 MG TAB PO SCH (08:56)
[2019-10-04] MEDS: Famotidine 20 MG TAB PO SCH ×2 (08:56→20:27)
[2019-10-04] MEDS: Carvedilol 6.25 MG TAB PO SCH ×2 (08:56→17:31)
[2019-10-04] MEDS: glipiZIDE 5 MG TAB PO SCH ×2 (08:56→17:30)
[2019-10-04] MEDS: Polyethylene Glycol 3350 17 GM Packet PO SCH (08:57)
[2019-10-04] MEDS: Enoxaparin Sodium 100 MG/ML SYRINGE SC SCH ×2 (08:57→20:26)
[2019-10-04] MEDS: Nitroglycerin 2% Ointment 1 INCH/1 GM Packet TOP SCH ×2 (08:57→20:27)
[2019-10-04] MEDS: Insulin Glargine 80 UNITS in Pre-Filled Syringe SC SCH ×3 (08:57→20:36)
[2019-10-04] MEDS: Aspirin 325 mg Enteric Coated Tablet PO SCH (09:00)
[2019-10-04] MEDS: Rosuvastatin 20 MG TAB PO SCH (20:27)
--- NOTE | 2019-10-04 22:01 | PDOC.HOSPP ---
- Subjective Encounter Date: 10/04/19 Subjective: Feels great. No complaints. - Objective Vital Signs & Weight: Vital Signs (12 hours) Temp Pulse Resp BP Pulse Ox 10/04/19 20:00 98.3 F 100 16 108/65 93 L 10/04/19 15:21 97.6 F 90 16 133/76 95 10/04/19 12:00 97.5 F L 86 16 124/78 96 Weight Weight 209 lb 4.8 oz I&O: 10/03/19 10/04/19 10/05/19 06:59 06:59 06:59 Intake Total 600 1440 840 Output Total 250 1200 700 Balance 350 240 140 Result Diagrams: 09/30/19 07:30 09/30/19 07:30 Additional Labs: Accuchecks 10/04/19 10/04/19 10/04/19 20:17 16:52 10:37 POC Glucose 108 98 219 H 10/04/19 10/04/19 06:30 05:31 POC Glucose 99 68 L Hospitalist ROS - Medication Medications: Active Medications Generic Name Dose Route Start Last Admin Trade Name Freq PRN Reason Stop Dose Admin Acetaminophen 650 mg 09/27/19 20:17 09/28/19 21:14 Tylenol PO 10/06/19 08:59 650 mg Q4H PRN Administration Headache/Fever/Mild Pain (1-3) Alogliptin Benzoate 25 mg 10/02/19 09:00 10/04/19 08:56 Alogliptin PO 10/06/19 08:59 25 mg DAILY ISABEL Administration Aspirin 325 mg 09/28/19 09:00 10/04/19 09:00 Ecotrin PO 10/06/19 08:59 325 mg DAILY ISABEL Administration Carvedilol 6.25 mg 09/30/19 17:00 10/04/19 17:31 Coreg PO 6.25 mg BID-WM ISABEL Administration Docusate Sodium 100 mg 10/02/19 21:00 10/04/19 20:27 Colace PO 10/06/19 08:59 100 mg BID ISABEL Administration Enoxaparin Sodium 100 mg 10/02/19 21:00 10/04/19 20:26 Lovenox SC 10/05/19 06:00 100 mg 0900,2100 ISABEL Administration Famotidine 20 mg 09/27/19 21:00 10/04/19 20:27 Pepcid PO 10/06/19 08:59 20 mg BID ISABEL Administration Glipizide 5 mg 09/30/19 16:30 10/04/19 17:30 Glucotrol PO 10/06/19 08:59 5 mg BID-AC ISABEL Administration Insulin Glargine 80 units/ 0.8 mls @ 0 mls/hr 10/01/19 07:41 10/04/19 20:36 Miscellaneous Medication SC 10/06/19 08:59 Not Given BID ISABEL As Directed Insulin Human Lispro 0 units 09/27/19 20:17 10/02/19 17:09 Humalog SC 10/06/19 08:59 3 unit .AGGRESSIVE SLIDING PRN Administration Aggressive Correctional Scale Insulin Human Lispro 0 units 09/28/19 17:56 09/29/19 21:50 Humalog SC 10/06/19 08:59 4 unit .BEDTIME SLIDING SC PRN Administration BEDTIME SLIDING SCALE Protocol Metformin HCl 1,000 mg 10/01/19 17:00 10/04/19 17:30 Glucophage PO 10/06/19 08:59 1,000 mg BID-WM ISABEL Administration Nitroglycerin 1 inch 10/02/19 21:00 10/04/19 20:27 Nitro-Bid 2% Ointment TOP 10/06/19 08:59 1 inch BID ISABEL Administration Polyethylene Glycol 17 gm 10/03/19 09:00 10/04/19 08:57 Miralax PO 10/06/19 08:59 17 gm DAILY ISABEL Administration Rosuvastatin Calcium 40 mg 09/29/19 21:00 10/04/19 20:27 Crestor PO 10/06/19 08:59 40 mg HS ISABEL Administration - Exam General Appearance: NAD, awake alert Neck: supple, symmetric, no JVD, no thyromegaly, no lymphadenopathy, no carotid bruit Heart: RRR, no murmur, no gallops, no rubs, normal peripheral pulses Respiratory: CTAB, no wheezes, no rales, no ronchi, normal chest expansion, no tachypnea, normal percussion Gastrointestinal: soft, non-tender, non-distended, normal bowel sounds, no palpable masses, no hepatomegaly, no splenomegaly, no bruit Skin: normal turgor, no lesions, no rashes Musculoskeletal: normal tone, normal strength, no muscle wasting Psychiatric: normal affect, normal behavior, A&O x 3 Hosp A/P (1) CAD (coronary artery disease) Code(s): I25.10 - ATHSCL HEART DISEASE OF [place] CORONARY ARTERY W/O ANG PCTRS Status: Chronic Qualifiers: Coronary Disease-Associated Artery/Lesion type: [place] artery [place] vs. transplanted heart: [place] heart Associated angina: without angina Qualified Code(s): I25.10 - Atherosclerotic heart disease of [place] coronary artery without angina pectoris (2) DM type 2 (diabetes mellitus, type 2) Status: Chronic Qualifiers: Diabetes mellitus penitentiary insulin use: with penitentiary use Diabetes mellitus complication status: with hyperglycemia Qualified Code(s): E11.65 - Type 2 diabetes mellitus with hyperglycemia; Z79.4 - retirement (current) use of insulin (3) Dyslipidemia Code(s): E78.5 - HYPERLIPIDEMIA, UNSPECIFIED Status: Chronic (4) HTN (hypertension) Code(s): I10 - ESSENTIAL (PRIMARY) HYPERTENSION Status: Chronic Qualifiers: Hypertension type: essential hypertension Qualified Code(s): I10 - Essential (primary) hypertension - Plan Doing well. Plan for CABG. Full-dose anticoaguation. Nitrates. Blood sugars well controlled.
[2019-10-05] MEDS: Acetaminophen 325 MG TAB PO PRN ×2 (05:54→11:32)
[2019-10-05 06:44] LABS: #Basophils 0.1 thou/uL (0.0-0.2); #Eosinphils 0.3 thou/uL (0.0-0.7); #Lymphocytes 3.2 thou/uL (1.20-3.40); #Monocytes 0.6 thou/uL (0.11-0.59); #Neutrophils 6.3 thou/uL (1.40-6.50); %Basophils 0.5 % (0.0-1.0); %Eosinophils 2.6 % (0.0-10.0); %Lymphocytes 30.7 % (21.0-51.0); %Monocytes 5.6 % (0.0-10.0); %Neutrophils 60.6 % (42.0-75.0); Mean Corpuscular HGB CONC 32.8 g/dL (32.0-36.0); Mean Corpuscular Hemoglobin 27.7 pg (27.0-31.0); Mean Corpuscular Volume 84.6 fL (78.0-98.0); Mean Platelet Volume 8.8 fL (7.4-10.4); Platelet Count 241 thou/uL (130-400); Red Blood Cell (RBC) Count 3.95 mill/uL (4.20-5.40); White Blood Cell (WBC) Count 10.3 thou/uL (4.8-10.8)
[2019-10-05 07:06] LABS: Anion Gap 14 mmol/L (10-20); BUN (Urea Nitrogen) 13 mg/dL (9.8-20.1); Calc. Creatinine Clearance 122 mL/min (70-130); Calcium 9.5 mg/dL (7.8-10.44); Carbon Dioxide 26 mmol/L (22-29); Chloride 102 mmol/L (98-107); Estimated GFR-MDRD Greater than 90; Glucose 106 mg/dL (70-105); Potassium 4.1 mmol/L (3.5-5.1); Sodium 138 mmol/L (136-145)
[2019-10-05] MEDS: Polyethylene Glycol 3350 17 GM Packet PO SCH (08:54)
[2019-10-05] MEDS: Alogliptin 25 MG TAB PO SCH (08:54)
[2019-10-05] MEDS: Carvedilol 6.25 MG TAB PO SCH ×2 (08:54→17:05)
[2019-10-05] MEDS: Aspirin 325 mg Enteric Coated Tablet PO SCH (08:54)
[2019-10-05] MEDS: metFORMIN 500 MG TAB PO SCH ×2 (08:54→17:04)
[2019-10-05] MEDS: Famotidine 20 MG TAB PO SCH ×2 (08:54→22:12)
[2019-10-05] MEDS: glipiZIDE 5 MG TAB PO SCH ×2 (08:54→17:04)
[2019-10-05] MEDS: Nitroglycerin 2% Ointment 1 INCH/1 GM Packet TOP SCH ×2 (08:54→22:12)
[2019-10-05] MEDS: Docusate 100 MG CAP PO SCH ×2 (08:55→22:11)
[2019-10-05] MEDS: Insulin Glargine 80 UNITS in Pre-Filled Syringe SC SCH ×2 (08:55→23:20)
--- NOTE | 2019-10-05 14:53 | PDOC.HOSPP ---
- Subjective Encounter Date: 10/05/19 Encounter Time: 14:52 Subjective: Feels fine. No complaints. - Objective Vital Signs & Weight: Vital Signs (12 hours) Temp Pulse Resp BP BP BP Pulse Ox 10/05/19 11:25 97.5 F L 98 16 105/64 93 L 10/05/19 08:00 97.5 F L 86 18 120/81 95 10/05/19 05:39 97 10/05/19 03:50 97.7 F 87 14 113/73 97 Weight Weight 209 lb 4.8 oz I&O: 10/04/19 10/05/19 10/06/19 06:59 06:59 06:59 Intake Total 1440 1080 Output Total 1200 700 400 Balance 240 380 -400 Result Diagrams: 10/05/19 06:33 10/05/19 06:33 Additional Labs: Accuchecks 10/05/19 10/05/19 10/04/19 10:32 05:33 23:20 POC Glucose 97 79 124 H 10/04/19 10/04/19 20:17 16:52 POC Glucose 108 98 Hospitalist ROS - Medication Medications: Active Medications Generic Name Dose Route Start Last Admin Trade Name Freq PRN Reason Stop Dose Admin Acetaminophen 650 mg 09/27/19 20:17 10/05/19 11:32 Tylenol PO 10/06/19 08:59 650 mg Q4H PRN Administration Headache/Fever/Mild Pain (1-3) Alogliptin Benzoate 25 mg 10/02/19 09:00 10/05/19 08:54 Alogliptin PO 10/06/19 08:59 25 mg DAILY ISABEL Administration Aspirin 325 mg 09/28/19 09:00 10/05/19 08:54 Ecotrin PO 10/06/19 08:59 325 mg DAILY ISABEL Administration Carvedilol 6.25 mg 09/30/19 17:00 10/05/19 08:54 Coreg PO 6.25 mg BID-WM ISABEL Administration Docusate Sodium 100 mg 10/02/19 21:00 10/05/19 08:55 Colace PO 10/06/19 08:59 100 mg BID ISABEL Administration Famotidine 20 mg 09/27/19 21:00 10/05/19 08:54 Pepcid PO 10/06/19 08:59 20 mg BID ISABEL Administration Glipizide 5 mg 09/30/19 16:30 10/05/19 08:54 Glucotrol PO 10/06/19 08:59 5 mg BID-AC ISABEL Administration Insulin Glargine 80 units/ 0.8 mls @ 0 mls/hr 10/01/19 07:41 10/05/19 08:55 Miscellaneous Medication SC 10/06/19 08:59 Not Given BID ISABEL As Directed Insulin Human Lispro 0 units 09/27/19 20:17 10/02/19 17:09 Humalog SC 10/06/19 08:59 3 unit .AGGRESSIVE SLIDING PRN Administration Aggressive Correctional Scale Insulin Human Lispro 0 units 09/28/19 17:56 09/29/19 21:50 Humalog SC 10/06/19 08:59 4 unit .BEDTIME SLIDING SC PRN Administration BEDTIME SLIDING SCALE Protocol Metformin HCl 1,000 mg 10/01/19 17:00 10/05/19 08:54 Glucophage PO 10/06/19 08:59 1,000 mg BID-WM ISABEL Administration Nitroglycerin 1 inch 10/02/19 21:00 10/05/19 08:54 Nitro-Bid 2% Ointment TOP 10/06/19 08:59 1 inch BID ISABEL Administration Polyethylene Glycol 17 gm 10/03/19 09:00 10/05/19 08:54 Miralax PO 10/06/19 08:59 17 gm DAILY ISABEL Administration Rosuvastatin Calcium 40 mg 09/29/19 21:00 10/04/19 20:27 Crestor PO 10/06/19 08:59 40 mg HS ISABEL Administration - Exam General Appearance: NAD, awake alert Heart: RRR, no murmur, no gallops, no rubs, normal peripheral pulses Respiratory: CTAB, no wheezes, no rales, no ronchi, normal chest expansion, no tachypnea, normal percussion Gastrointestinal: soft, non-tender, non-distended, normal bowel sounds, no palpable masses, no hepatomegaly, no splenomegaly, no bruit Extremities: no cyanosis, no clubbing, no edema Musculoskeletal: normal tone, normal strength, no muscle wasting Hosp A/P (1) CAD (coronary artery disease) Code(s): I25.10 - ATHSCL HEART DISEASE OF [place] CORONARY ARTERY W/O ANG PCTRS Status: Chronic Qualifiers: Coronary Disease-Associated Artery/Lesion type: [place] artery [place] vs. transplanted heart: [place] heart Associated angina: without angina Qualified Code(s): I25.10 - Atherosclerotic heart disease of [place] coronary artery without angina pectoris (2) DM type 2 (diabetes mellitus, type 2) Status: Chronic Qualifiers: Diabetes mellitus skilled nursing insulin use: with skilled nursing use Diabetes mellitus complication status: with hyperglycemia Qualified Code(s): E11.65 - Type 2 diabetes mellitus with hyperglycemia; Z79.4 - retirement (current) use of insulin (3) Dyslipidemia Code(s): E78.5 - HYPERLIPIDEMIA, UNSPECIFIED Status: Chronic (4) HTN (hypertension) Code(s): I10 - ESSENTIAL (PRIMARY) HYPERTENSION Status: Chronic Qualifiers: Hypertension type: essential hypertension Qualified Code(s): I10 - Essential (primary) hypertension - Plan Doing well. Plan for CABG tomorrow. Full-dose anticoaguation. Nitrates. Blood sugars well controlled. BP well controlled.
[2019-10-05] MEDS: Rosuvastatin 20 MG TAB PO SCH (22:11)
[2019-10-06] MEDS: Carvedilol 6.25 MG TAB PO SCH (05:40)
[2019-10-06] MEDS ORDERED: Clindamycin/D5W 900 MG in Premix Bag 1 BAG IVPB SCH (06:30)
[2019-10-06] MEDS ORDERED: Albumin 5% 500 ML ONE (06:32)
[2019-10-06] MEDS ORDERED: EPINEPHrine 1 MG/ML AMP ONE (06:32)
[2019-10-06] MEDS ORDERED: Bupivacaine PF 0.5% 30 ML VIAL ONE (06:32)
[2019-10-06] MEDS ORDERED: Dexamethasone 4 mg/ml Vial ONE (06:32)
[2019-10-06] MEDS ORDERED: Dexmedetomidine 200 MCG/2 ML VIAL ONE (06:42)
[2019-10-06] MEDS ORDERED: Fentanyl 100 MCG/2 ML VIAL ONE (06:42)
[2019-10-06] MEDS ORDERED: Phenylephrine HCL 10 MG/ML VIAL ONE (06:42)
[2019-10-06] MEDS ORDERED: Midazolam HCl 2 mg/2 ml Vial ONE (06:42)
[2019-10-06] MEDS ORDERED: Heparin 10,000 UNITS/1 ML VIAL 30,000 UNITS in Sodium Chloride 0.9% 1,000 ML FS SCH (06:45)
[2019-10-06] MEDS ORDERED: Clindamycin/D5W 900 mg/50 ml Premix Bag ONE (07:14)
[2019-10-06] MEDS ORDERED: Insulin Regular 300 UNITS/3 ML VIAL ONE (07:19)
[2019-10-06] MEDS ORDERED: Calcium Chloride 1 GM/10 ML Abboject SYRINGE ONE (09:47)
[2019-10-06] MEDS ORDERED: Nitroglycerin 50 MG/250 ML BOT ONE (09:47)
[2019-10-06] MEDS ORDERED: Lidocaine 1% PF 5 ML VIAL ONE (09:47)
[2019-10-06] MEDS ORDERED: Papaverine 60 MG/2 ML VIAL ONE (09:47)
[2019-10-06] MEDS ORDERED: Sodium Bicarb 50 MEQ/50 ML Abboject 8.4% SYRINGE ONE (09:47)
[2019-10-06] MEDS ORDERED: Aminocaproic Acid 5 GM/20 ML VIAL ONE (09:47)
[2019-10-06] MEDS ORDERED: Glycopyrrolate 0.2 MG/ML 5 ML SYRINGE ONE (09:47)
[2019-10-06] MEDS ORDERED: Cardioplegic Soln 1,000 ML BAG ONE (09:47)
[2019-10-06] MEDS ORDERED: Protamine Sulfate 250 MG/25 ML VIAL ONE (09:47)
[2019-10-06] MEDS ORDERED: Lidocaine 2% PF 5 ML VIAL ONE (09:47)
[2019-10-06] MEDS ORDERED: Heparin 30,000 units/30 ml VIAL ONE (09:47)
[2019-10-06] MEDS ORDERED: Rocuronium Bromide 10 MG/ML (10ML VIAL) ONE (09:47)
[2019-10-06] MEDS ORDERED: Heparin 5,000 UNITS/ML VIAL ONE (09:47)
[2019-10-06] MEDS ORDERED: Dexamethasone 20 MG/5 ML VIAL ONE (09:47)
[2019-10-06] MEDS ORDERED: Ondansetron PF 4 MG/2 ML Vial ONE (09:47)
[2019-10-06] MEDS ORDERED: PROPOFOL 200 MG/20 ML VIAL ONE (09:47)
[2019-10-06] MEDS ORDERED: Potassium Chloride 60 MEQ/30 ML VIAL ONE (09:47)
[2019-10-06] MEDS ORDERED: Thrombin 5000 UNITS/5 ML VIAL ONE (09:47)
[2019-10-06] MEDS ORDERED: Bisacodyl 10 MG SUPP PR PRN (10:48)
[2019-10-06] MEDS ORDERED: Acetaminophen 325 MG TAB PO PRN (10:48)
[2019-10-06] MEDS ORDERED: Magnesium 2 GM/50 ML 2 GM in Premix Bag 1 BAG IVPB SCH (10:48)
[2019-10-06] MEDS ORDERED: Mag-Al 1200 mg/1200 mg/30 ML UDCUP PO PRN (10:48)
[2019-10-06] MEDS ORDERED: Bisacodyl 5 MG TAB PO PRN (10:48)
[2019-10-06] MEDS ORDERED: Ondansetron PF 4 MG/2 ML Vial IVP PRN (10:48)
[2019-10-06] MEDS ORDERED: Fentanyl 100 MCG/2 ML VIAL SLOW IVP PRN (10:48)
[2019-10-06] MEDS ORDERED: Guaifenesin DM 100-10/5 ML UDCUP PO PRN (10:48)
[2019-10-06] MEDS ORDERED: D5 1/2 NS w/20 mEq KCL 1,000 ML IV SCH (10:48)
[2019-10-06] MEDS ORDERED: hydrALAZINE 20 MG/ML VIAL SLOW IVP PRN (10:48)
[2019-10-06] MEDS ORDERED: Promethazine HCl 25 MG/ML VIAL IM PRN (10:48)
[2019-10-06] MEDS ORDERED: Morphine 2 MG/ML SYRINGE SLOW IVP PRN (10:48)
[2019-10-06] MEDS ORDERED: Potassium Chloride 20 MEQ/100 ML PREMIX BAG IVPB PRN (10:48)
[2019-10-06] MEDS ORDERED: Hetastarch 6% 500 ML 500 ML IVPB PRN (10:48)
[2019-10-06] MEDS ORDERED: Nitroglycerin 50 MG/250 ML BOT 250 ML IVPB PRN (10:48)
[2019-10-06] MEDS ORDERED: Post-Op Insulin Drip Protocol IVPB ONE (10:48)
[2019-10-06] MEDS ORDERED: Norepinephrine 8 MG/0.9% NS 250 ML IVPB PRN (10:48)
[2019-10-06] MEDS ORDERED: D5 1/2 NS w/20 mEq KCL 1,000 ML ONE (10:52)
[2019-10-06] MEDS ORDERED: Dextrose 5% in Water 1,000 ML IV PRN (11:09)
[2019-10-06] MEDS ORDERED: HUMULIN R 100 UNITS in Sodium Chloride 0.9% 100 ML IVPB SCH (11:09)
[2019-10-06] MEDS ORDERED: Dextrose 50% Abboject 50 ML SYRINGE SLOW IVP PRN (11:09)
[2019-10-06 11:22] LABS: #Eosinphils 0.1 thou/uL (0.0-0.7); #Lymphocytes 1.8 thou/uL (1.20-3.40); #Monocytes 0.9 thou/uL (0.11-0.59); #Neutrophils 16.8 thou/uL (1.40-6.50); %Basophils 0.2 % (0.0-1.0); %Eosinophils 0.5 % (0.0-10.0); %Lymphocytes 9.3 % (21.0-51.0); %Monocytes 4.6 % (0.0-10.0); %Neutrophils 85.5 % (42.0-75.0); Hemoglobin 9.5 g/dL (12.0-16.0); Mean Corpuscular HGB CONC 32.2 g/dL (32.0-36.0); Mean Corpuscular Hemoglobin 27.7 pg (27.0-31.0); Mean Platelet Volume 8.8 fL (7.4-10.4); Platelet Count 210 thou/uL (130-400); RBC Distribution Width 13.2 % (11.5-14.5); Red Blood Cell (RBC) Count 3.42 mill/uL (4.20-5.40); White Blood Cell (WBC) Count 19.6 thou/uL (4.8-10.8)
[2019-10-06 11:27] LABS: INR-International Normal Ratio 1.1; PTT 34.1 SEC (22.9-36.1)
--- NOTE | 2019-10-06 11:31 | RAD ---
RADIOGRAPH CHEST 1 VIEW: DATE: 10/06/2019 TIME: 11:21 AM HISTORY: 54-year-old female status post open heart surgery. COMPARISON: 10/05/2019 FINDINGS: All of the following are new on the current study compared to the prior: Right subclavian central venous catheter with distal tip probably in right atrium. Sternotomy wires. Midline ascending drainage catheter. Left basilar Drainage catheter. No endotracheal tube and no NG tube. No pulmonary edema. New finding of blunting of left lateral costophrenic angle, probably mild atelectasis and/or small le ft pleural effusion. No large consolidation. No pneumothorax. IMPRESSION: Recently status post open heart surgery. No pulmonary edema or consolidation.
[2019-10-06] MEDS: Fentanyl 100 MCG/2 ML VIAL SLOW IVP PRN ×3 (11:34→22:22)
[2019-10-06 11:46] LABS: Anion Gap 11 mmol/L (10-20); BUN (Urea Nitrogen) 14 mg/dL (9.8-20.1); Calc. Creatinine Clearance 132 mL/min (70-130); Calcium 8.4 mg/dL (7.8-10.44); Carbon Dioxide 25 mmol/L (22-29); Chloride 105 mmol/L (98-107); Estimated GFR-MDRD Greater than 90; Glucose 192 mg/dL (70-105); Potassium 4.7 mmol/L (3.5-5.1); Sodium 136 mmol/L (136-145)
[2019-10-06 11:51] LABS: Actual Bicarbonate (HCO3a) 22.6 mEq/L (22-28); Base Excess (BEa) -3.2 mEq/L (-2.0 to +3.0); CO2 Tension 43.8 mmHg (35.0-45.0); Calcium, Ionized 1.16 mmol/L (1.12-1.30); Carboxyhemoglobin (COHb) 1.1 gm% (0.0-3.0); Hemoglobin (Hb) 10.3 g/dL (12.0-16.0); O2 Tension (PaO2) 110.1 mmHg (80.0-100.0); Potassium - ABG Lab 4.44 mmol/L (3.70-5.30); pH, Arterial 7.33 (7.35-7.45)
[2019-10-06 11:54] LABS: Puncture Site ALINE
[2019-10-06] MEDS: glipiZIDE 5 MG TAB PO SCH (11:56)
[2019-10-06] MEDS: metFORMIN 500 MG TAB PO SCH (11:56)
--- NOTE | 2019-10-06 12:42 | OP ---
DATE OF PROCEDURE: 10/06/2019 PREOPERATIVE DIAGNOSES: Coronary artery disease/diabetes mellitus/hypertension/dyslipidemia/obesity. POSTOPERATIVE DIAGNOSES: Coronary artery disease/diabetes mellitus/hypertension/dyslipidemia/obesity. PROCEDURES PERFORMED: Coronary artery bypass grafting x3: 1. Left internal mammary artery to 1.5 mm LAD -good conduit and target. 2. Reverse saphenous vein to 1.5 mm OM - good conduit and target. 3. Reverse saphenous vein to heavily calcified diffusely diseased 1.25 mm PDA. Note, the PL branch was considered non-bypassable due to size and heavy calcification. I would not consider her for redo bypass. AERODYNAMICIST SURGEON: Dr. Shankar Tapia. ANESTHESIA: General endotracheal - Dr. Paul Mosley. PUMP TIME: 53 minutes. CROSSCLAMP TIME: 30 minutes. LOW CORE TEMPERATURE: 32 degrees Celsius. FLIGHT SIMULATOR TEACHER: Sirena Leon. DRAINS: 24-Maori chest tubes x2. DRIPS: None. TRANSFUSIONS: None. DESCRIPTION OF PROCEDURE: After consent was obtained, the patient was brought to the operating room and placed in supine position on the operating table. Appropriate central line and monitors were placed and general endotracheal anesthesia was induced. Chest, abdomen, and legs were prepped and draped in usual sterile fashion. Greater saphenous vein was harvested from the right lower extremity utilizing an endoscopic technique. In the left lower extremity, the saphenous vein had been previously explored and was varicosed. The wound was irrigated and closed in layers. Median sternotomy was performed. Left internal mammary artery was harvested as a pedicle graft. The patient was systemically heparinized. Distal pedicle was divided and infused with papaverine. Thymic fat and pericardium were divided with electrocautery. Pericardial stay sutures were placed. Aortic and atrial cannulation were performed. After adequate heparinization, retrograde prime was performed and the patient was placed on cardiopulmonary bypass. Distal targets were marked. Aortic cross-clamp was applied and antegrade sanguineous cardioplegic arrest was obtained. 1 L of antegrade [place] cardioplegia was given. Topical cold solution was used. Reverse saphenous vein was anastomosed to the OM in end-to-side fashion with running 7-0 Prolene suture. Anastomosis was tested and it was hemostatic. The right coronary artery was followed to its bifurcation. The posterolateral branch was followed distally and there was never any bypassable spot on the posterolateral branch. The posterior descending was bypassed approximately 2 cm distal to the bifurcation with running 7-0 Prolene suture. Anastomosis was tested and it was hemostatic. Mammary artery was brought through a window in the pericardium and anastomosed to distal LAD in end-to-side fashion with running 7-0 Prolene suture. On release of mammary clamps, good hooding of the anastomosis and good distal flow. Pedicle was secured with interrupted 6-0 Prolene suture. Cross-clamp was removed and partial occluding clamp placed. Saphenous veins were anastomosed to individual punch sites with running 6-0 Prolene suture. Partial occluding clamp was removed and graft was deaired. Anastomoses were inspected for hemostasis, which was good. The patient was warmed and weaned from cardiopulmonary bypass. After resumption of sinus rhythm, good hemodynamics, temperature greater than 36.5, bypass was discontinued. Transfusion was given. Protamine was administered. Decannulation was performed and pursestring suture secured. 24-Maori chest tubes were placed in the mediastinum. Sternum was treated with vancomycin paste. After adequate hemostasis had been obtained, sternum was closed with #7 wire. Sternum was treated with platelet rich plasma, wires twisted and buried. Wounds were irrigated, treated with platelet poor plasma and closed in multiple layers. Needle, sponge, and instrument counts were all reported as correct at the end of the procedure. The patient was transported to the intensive care unit in stable, but critical condition. Job ID: [id number]
[2019-10-06] MEDS: Ketorolac Tromethamine 30 MG/ML VIAL IVP SCH ×2 (13:01→17:07)
[2019-10-06] MEDS: Clindamycin/D5W 900 MG in Premix Bag 1 BAG IVPB SCH ×2 (13:02→19:44)
[2019-10-06 17:01] LABS: Hemoglobin 9.8 g/dL (12.0-16.0)
--- NOTE | 2019-10-06 17:09 | EKG ---
Test Reason : POST CABG Blood Pressure : / mmHG Vent. Rate : 075 BPM Atrial Rate : 075 BPM P-R Int : 234 ms QRS Dur : 082 ms QT Int : 414 ms P-R-T Axes : 064 011 041 degrees QTc Int : 462 ms Sinus rhythm with 1st degree A-V block Otherwise normal ECG When compared with ECG of 27-SEP-2019 18:08, [place] interval has increased T wave inversion no longer evident in Inferior leads T wave amplitude has increased in Anterior leads Confirmed by DR. Mabel GARCIA ([id number]) on 10/06/2019 5:09:13 PM Referred By: Tamra PANG Confirmed By:DR. Mabel GARCIA
[2019-10-06 17:25] LABS: Potassium 4.5 mmol/L (3.5-5.1)
[2019-10-06] MEDS: HYDROcodone/Acetaminophen 5/325 mg Tablet PO PRN (20:16)
[2019-10-06] MEDS ORDERED: Famotidine/PF 20 mg/2ml Vial SLOW IVP SCH (21:00)
[2019-10-06] MEDS ORDERED: Atorvastatin Calcium 20 MG TAB PO SCH (21:00)
--- NOTE | 2019-10-06 21:36 | PDOC.HOSPP ---
- Subjective Subjective: Doing well post CABG x 3. Has some pain, but tolerable. - Objective Vital Signs & Weight: Vital Signs (12 hours) Temp Pulse Ox 10/06/19 20:00 98.2 F 10/06/19 16:00 97.4 F L 10/06/19 11:05 96.3 F L 96 Weight Weight 209 lb 4.8 oz Most Recent Monitor Data Heart Rate from ECG 107 NIBP 103/76 NIBP BP-Mean 85 Respiration from ECG 24 SpO2 98 I&O: 10/05/19 10/06/19 10/07/19 06:59 06:59 06:59 Intake Total 1080 929.4 Output Total 700 400 870 Balance 380 -400 59.4 Result Diagrams: 10/06/19 16:52 10/06/19 16:52 Additional Labs: Accuchecks 10/06/19 10/06/19 10/06/19 19:06 18:04 16:58 POC Glucose 143 H 160 H 180 H 10/06/19 10/06/19 10/06/19 16:00 15:02 13:59 POC Glucose 207 H 216 H 217 H 10/06/19 10/06/19 10/06/19 13:18 12:01 11:11 POC Glucose 216 H 218 H 196 H 10/06/19 10/06/19 10/06/19 09:38 06:11 02:56 POC Glucose 217 H 172 H 115 H Hospitalist ROS - Medication Medications: Active Medications Generic Name Dose Route Start Last Admin Trade Name Freq PRN Reason Stop Dose Admin Hydrocodone Bitart/Acetaminophen 2 tab 10/06/19 10:48 10/06/19 20:16 [place] 5/325 PO 2 tab Q4H PRN Administration Severe Pain (7-10) Albumin Human 12.5 gm 10/06/19 10:48 10/06/19 14:01 Albumin 5% IVPB 10/07/19 10:49 12.5 gm Q6H PRN Administration To Maintain SBP> 90 mmHG Atorvastatin Calcium 20 mg 10/06/19 21:00 10/06/19 20:17 Lipitor PO 20 mg QPM ISABEL Administration Famotidine 20 mg 10/06/19 21:00 10/06/19 20:18 Pepcid SLOW IVP 20 mg Q12HR ISABEL Administration Fentanyl 50 mcg 10/06/19 10:48 10/06/19 17:04 Sublimaze SLOW IVP 10/08/19 10:38 50 mcg Q2H PRN Administration Severe Pain (7-10) Clindamycin Phosphate/Dextrose 50 mls @ 100 mls/hr 10/06/19 13:00 10/06/19 19 :44 900 mg/ Device IVPB 10/07/19 07:29 50 mls 0100,0700,1300,1900 ISABEL Administration Potassium Chloride/Dextrose/Sod Cl 1,000 mls @ 40 mls/hr 10/06/19 10:48 10/06 11:55 D5 1/2 Ns W/20 Meq Kcl IV Not Given .Q24H ISABEL Insulin Human Regular 100 101 mls @ 0 mls/hr 10/06/19 11:09 10/06/19 11:46 units/ Sodium Chloride IVPB 101 mls INF ISABEL Administration Protocol As Directed Ketorolac Tromethamine 30 mg 10/06/19 12:00 10/06/19 17:07 Toradol IVP 10/09/19 12:01 30 mg Q6HR ISABEL Administration - Exam General Appearance: NAD, awake alert Heart: RRR, no murmur, no gallops, no rubs, normal peripheral pulses Respiratory: CTAB, no wheezes, no rales, no ronchi, normal chest expansion, no tachypnea, normal percussion Gastrointestinal: soft, non-tender, non-distended, normal bowel sounds, no palpable masses, no hepatomegaly, no splenomegaly, no bruit Extremities: no cyanosis Skin: normal turgor Musculoskeletal: normal tone Psychiatric: normal affect, normal behavior, A&O x 3 Hosp A/P (1) CAD (coronary artery disease) Code(s): I25.10 - ATHSCL HEART DISEASE OF [place] CORONARY ARTERY W/O ANG PCTRS Status: Chronic Qualifiers: Coronary Disease-Associated Artery/Lesion type: [place] artery [place] vs. transplanted heart: [place] heart Associated angina: without angina Qualified Code(s): I25.10 - Atherosclerotic heart disease of [place] coronary artery without angina pectoris (2) DM type 2 (diabetes mellitus, type 2) Status: Chronic Qualifiers: Diabetes mellitus local company intermodal truck driver insulin use: with senior care use Diabetes mellitus complication status: with hyperglycemia Qualified Code(s): E11.65 - Type 2 diabetes mellitus with hyperglycemia; Z79.4 - superintendent terminal (current) use of insulin (3) Dyslipidemia Code(s): E78.5 - HYPERLIPIDEMIA, UNSPECIFIED Status: Chronic (4) HTN (hypertension) Code(s): I10 - ESSENTIAL (PRIMARY) HYPERTENSION Status: Chronic Qualifiers: Hypertension type: essential hypertension Qualified Code(s): I10 - Essential (primary) hypertension (5) Status post aorto-coronary artery bypass graft Code(s): Z95.1 - PRESENCE OF AORTOCORONARY BYPASS GRAFT Status: Acute - Plan Doing well. Plan for CABG tomorrow. Full-dose anticoaguation. Nitrates. Blood sugars well controlled. BP well controlled.
[2019-10-07] MEDS: Ketorolac Tromethamine 30 MG/ML VIAL IVP SCH ×5 (00:03→23:31)
[2019-10-07] MEDS: Clindamycin/D5W 900 MG in Premix Bag 1 BAG IVPB SCH ×2 (01:03→07:11)
[2019-10-07] MEDS: Fentanyl 100 MCG/2 ML VIAL SLOW IVP PRN ×3 (01:11→08:56)
[2019-10-07 04:44] LABS: #Lymphocytes 1.2 thou/uL (1.20-3.40); #Monocytes 1.1 thou/uL (0.11-0.59); #Neutrophils 14.9 thou/uL (1.40-6.50); %Basophils 0.2 % (0.0-1.0); %Eosinophils 0.1 % (0.0-10.0); %Lymphocytes 6.8 % (21.0-51.0); %Monocytes 6.4 % (0.0-10.0); %Neutrophils 86.6 % (42.0-75.0); Hemoglobin 9.4 g/dL (12.0-16.0); Mean Corpuscular HGB CONC 30.9 g/dL (32.0-36.0); Mean Corpuscular Volume 87.4 fL (78.0-98.0); Mean Platelet Volume 9.4 fL (7.4-10.4); Platelet Count 283 thou/uL (130-400); RBC Distribution Width 13.6 % (11.5-14.5); Red Blood Cell (RBC) Count 3.47 mill/uL (4.20-5.40); White Blood Cell (WBC) Count 17.2 thou/uL (4.8-10.8)
[2019-10-07 05:10] LABS: Anion Gap 10 mmol/L (10-20); BUN (Urea Nitrogen) 14 mg/dL (9.8-20.1); Calc. Creatinine Clearance 132 mL/min (70-130); Calcium 8.4 mg/dL (7.8-10.44); Carbon Dioxide 24 mmol/L (22-29); Chloride 105 mmol/L (98-107); Estimated GFR-MDRD Greater than 90; Glucose 156 mg/dL (70-105); Potassium 4.1 mmol/L (3.5-5.1); Sodium 135 mmol/L (136-145)
[2019-10-07] MEDS: HYDROcodone/Acetaminophen 5/325 mg Tablet PO PRN ×4 (05:25→23:31)
[2019-10-07] MEDS ORDERED: Dextrose 5% in Water 1,000 ML IV PRN (06:45)
[2019-10-07] MEDS ORDERED: Dextrose 50% Abboject 50 ML SYRINGE SLOW IVP PRN (06:45)
[2019-10-07] MEDS: Alogliptin 25 MG TAB PO SCH (08:54)
[2019-10-07] MEDS: Famotidine 20 MG TAB PO SCH ×2 (08:54→21:19)
[2019-10-07] MEDS: Magnesium 2 GM/50 ML 2 GM in Premix Bag 1 BAG IVPB SCH (08:55)
[2019-10-07] MEDS: Carvedilol 3.125 MG TAB PO SCH ×2 (08:55→17:05)
[2019-10-07] MEDS ORDERED: Aspirin 325 MG TAB PO SCH (09:00)
--- NOTE | 2019-10-07 09:50 | RAD ---
PORTABLE CHEST ONE VIEW: 10/07/2019 4:00 a.m. HISTORY: Post open heart surgery. FINDINGS: No significant interval changes seen since the previous day's exam. POS: SHANNAN
--- NOTE | 2019-10-07 11:01 | PDOC.HOSPP ---
- Subjective Encounter Date: 10/07/19 Encounter Time: 11:00 Subjective: Doing very well. Only complaint is post-op pain. Not sleeping well as a result. Meds help until she moves around and then the pain starts again. Using IS, but not able to do much yet. - Objective Vital Signs & Weight: Vital Signs (12 hours) Temp Pulse Ox 10/07/19 07:54 97 10/07/19 07:00 98.9 F 10/07/19 04:00 98.3 F 10/07/19 00:00 98.4 F Weight Weight 206 lb 12.697 oz Most Recent Monitor Data Heart Rate from ECG 84 NIBP 118/76 NIBP BP-Mean 90 Respiration from ECG 19 SpO2 95 I&O: 10/06/19 10/07/19 10/08/19 06:59 06:59 06:59 Intake Total 1686.8 150 Output Total 400 1208 155 Balance -400 478.8 -5 Result Diagrams: 10/07/19 03:10 10/07/19 03:10 Additional Labs: Accuchecks 10/07/19 10/06/19 10/06/19 00:11 23:11 22:17 POC Glucose 126 H 141 H 162 H 10/06/19 10/06/19 10/06/19 21:10 20:11 19:06 POC Glucose 147 H 158 H 143 H 10/06/19 10/06/19 10/06/19 18:04 16:58 16:00 POC Glucose 160 H 180 H 207 H 10/06/19 10/06/19 10/06/19 15:02 13:59 13:18 POC Glucose 216 H 217 H 216 H 10/06/19 10/06/19 12:01 11:11 POC Glucose 218 H 196 H Hospitalist ROS - Medication Medications: Active Medications Generic Name Dose Route Start Last Admin Trade Name Freq PRN Reason Stop Dose Admin Hydrocodone Bitart/Acetaminophen 2 tab 10/06/19 10:48 10/07/19 05:25 [place] 5/325 PO 2 tab Q4H PRN Administration Severe Pain (7-10) Alogliptin Benzoate 25 mg 10/07/19 09:00 10/07/19 08:54 Alogliptin PO 25 mg DAILY ISABEL Administration Aspirin 325 mg 10/07/19 09:00 10/07/19 08:54 Aspirin PO 325 mg DAILY ISABEL Administration Carvedilol 3.125 mg 10/07/19 08:00 10/07/19 08:55 Coreg PO 3.125 mg BID-WM ISABEL Administration Famotidine 20 mg 10/07/19 09:00 10/07/19 08:54 Pepcid PO 20 mg BID ISABEL Administration Fentanyl 50 mcg 10/06/19 10:48 10/07/19 08:56 Sublimaze SLOW IVP 10/08/19 10:38 50 mcg Q2H PRN Administration Severe Pain (7-10) Magnesium Sulfate 2 gm/ Device 50 mls @ 50 mls/hr 10/07/19 09:00 10/07/19 08: 55 IVPB 10/08/19 09:59 50 mls QAM ISABEL Administration Ketorolac Tromethamine 30 mg 10/06/19 12:00 10/07/19 06:20 Toradol IVP 10/09/19 12:01 30 mg Q6HR ISABEL Administration Ondansetron HCl 4 mg 10/06/19 10:48 10/07/19 07:18 Zofran IVP 4 mg Q6H PRN Administration Nausea/Vomiting - Exam General Appearance: NAD, awake alert Heart: RRR, no murmur, no gallops, no rubs, normal peripheral pulses Respiratory: CTAB, no wheezes, no rales, no ronchi, normal chest expansion, no tachypnea, normal percussion Gastrointestinal: soft, non-tender, non-distended, normal bowel sounds, no palpable masses, no hepatomegaly, no splenomegaly, no bruit Skin: normal turgor Neurological: no focal deficits Musculoskeletal: normal tone, normal strength Psychiatric: normal affect, normal behavior, A&O x 3 Hosp A/P (1) CAD (coronary artery disease) Code(s): I25.10 - ATHSCL HEART DISEASE OF [place] CORONARY ARTERY W/O ANG PCTRS Status: Chronic Qualifiers: Coronary Disease-Associated Artery/Lesion type: [place] artery [place] vs. transplanted heart: [place] heart Associated angina: without angina Qualified Code(s): I25.10 - Atherosclerotic heart disease of [place] coronary artery without angina pectoris (2) DM type 2 (diabetes mellitus, type 2) Status: Chronic Qualifiers: Diabetes mellitus intermodal truck driver insulin use: with intermodal truck driver use Diabetes mellitus complication status: with hyperglycemia Qualified Code(s): E11.65 - Type 2 diabetes mellitus with hyperglycemia; Z79.4 - ferry terminal supervisor (current) use of insulin (3) Dyslipidemia Code(s): E78.5 - HYPERLIPIDEMIA, UNSPECIFIED Status: Chronic (4) HTN (hypertension) Code(s): I10 - ESSENTIAL (PRIMARY) HYPERTENSION Status: Chronic Qualifiers: Hypertension type: essential hypertension Qualified Code(s): I10 - Essential (primary) hypertension (5) Status post aorto-coronary artery bypass graft Code(s): Z95.1 - PRESENCE OF AORTOCORONARY BYPASS GRAFT Status: Acute - Plan Doing well. Post CABG x 3 Pain management. Blood sugars well controlled. BP well controlled. Mobility as tolerated.
[2019-10-07] MEDS: Insulin Regular 300 UNITS/3 ML VIAL SC PRN ×3 (11:16→21:19)
[2019-10-07 12:27] VITALS: BMI 31.4
[2019-10-07] MEDS ORDERED: Furosemide 40 MG/4 ML VIAL SLOW IVP SCH (13:15)
[2019-10-07] MEDS ORDERED: Potassium Chloride 10 MEQ TAB PO SCH (13:15)
--- NOTE | 2019-10-07 16:42 | PDOC.HOSPP ---
- Subjective Subjective: Doing well post CABG. Still has some pain, but no other concerns. - Objective Vital Signs & Weight: Vital Signs (12 hours) Temp Pulse Pulse BP BP Pulse Ox Pulse Ox 10/07/19 16:00 98.6 F 10/07/19 15:54 93 97 116/75 119/76 95 10/07/19 11:00 98.3 F 10/07/19 07:54 97 10/07/19 07:00 98.9 F Pulse Ox 10/07/19 16:00 10/07/19 15:54 97 10/07/19 11:00 10/07/19 07:54 10/07/19 07:00 Weight Admit Weight 199 lb Weight 206 lb 12.697 oz Most Recent Monitor Data Heart Rate from ECG 103 NIBP 105/77 NIBP BP-Mean 86 Respiration from ECG 21 SpO2 96 I&O: 10/06/19 10/07/19 10/08/19 06:59 06:59 06:59 Intake Total 1686.8 450 Output Total 400 1208 1775 Balance -400 478.8 -1325 Result Diagrams: 10/07/19 03:10 10/07/19 03:10 Additional Labs: Accuchecks 10/07/19 10/07/19 10/06/19 11:13 00:11 23:11 POC Glucose 199 H 126 H 141 H 10/06/19 10/06/19 10/06/19 22:17 21:10 20:11 POC Glucose 162 H 147 H 158 H 10/06/19 10/06/19 10/06/19 19:06 18:04 16:58 POC Glucose 143 H 160 H 180 H 10/06/19 10/06/19 10/06/19 15:02 13:59 13:18 POC Glucose 216 H 217 H 216 H 10/06/19 12:01 POC Glucose 218 H Hospitalist ROS - Medication Medications: Active Medications Generic Name Dose Route Start Last Admin Trade Name Freq PRN Reason Stop Dose Admin Hydrocodone Bitart/Acetaminophen 2 tab 10/06/19 10:48 10/07/19 15:56 [place] 5/325 PO 2 tab Q4H PRN Administration Severe Pain (7-10) Alogliptin Benzoate 25 mg 10/07/19 09:00 10/07/19 08:54 Alogliptin PO 25 mg DAILY ISABEL Administration Aspirin 325 mg 10/07/19 09:00 10/07/19 08:54 Aspirin PO 325 mg DAILY ISABEL Administration Carvedilol 3.125 mg 10/07/19 08:00 10/07/19 08:55 Coreg PO 3.125 mg BID-WM ISABEL Administration Famotidine 20 mg 10/07/19 09:00 10/07/19 08:54 Pepcid PO 20 mg BID ISABEL Administration Fentanyl 50 mcg 10/06/19 10:48 10/07/19 08:56 Sublimaze SLOW IVP 10/08/19 10:38 50 mcg Q2H PRN Administration Severe Pain (7-10) Magnesium Sulfate 2 gm/ Device 50 mls @ 50 mls/hr 10/07/19 09:00 10/07/19 08: 55 IVPB 10/08/19 09:59 50 mls QAM ISABEL Administration Insulin Human Regular 0 units 10/07/19 06:45 10/07/19 11:16 Humulin R SC 2 unit .MODERATE SLIDING SC PRN Administration Moderate Correctional Scale Ketorolac Tromethamine 30 mg 10/06/19 12:00 10/07/19 11:16 Toradol IVP 10/09/19 12:01 30 mg Q6HR ISABEL Administration Ondansetron HCl 4 mg 10/06/19 10:48 10/07/19 07:18 Zofran IVP 4 mg Q6H PRN Administration Nausea/Vomiting - Exam General Appearance: NAD, awake alert Heart: RRR, no murmur, no gallops, no rubs, normal peripheral pulses Heart - other findings: Sternotomy incision dressed. Respiratory: CTAB, no wheezes, no rales, no ronchi, normal chest expansion, no tachypnea, normal percussion Gastrointestinal: soft, non-tender, non-distended, normal bowel sounds, no palpable masses, no hepatomegaly, no splenomegaly, no bruit Skin: normal turgor, no lesions, no rashes Neurological: no focal deficits Musculoskeletal: normal tone, normal strength, no muscle wasting Psychiatric: normal affect, normal behavior, A&O x 3 Hosp A/P (1) CAD (coronary artery disease) Code(s): I25.10 - ATHSCL HEART DISEASE OF [place] CORONARY ARTERY W/O ANG PCTRS Status: Chronic Qualifiers: Coronary Disease-Associated Artery/Lesion type: [place] artery [place] vs. 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 Post CABG x 3 Pain management. Blood sugars well controlled. BP well controlled. Mobility as tolerated. Continue IS. [facility] following.
[2019-10-07] MEDS: Rosuvastatin 20 MG TAB PO SCH (21:18)
[2019-10-08] MEDS: HYDROcodone/Acetaminophen 5/325 mg Tablet PO PRN ×5 (04:42→20:49)
[2019-10-08 04:53] LABS: #Eosinphils 0.1 thou/uL (0.0-0.7); #Lymphocytes 2.5 thou/uL (1.20-3.40); #Monocytes 1.1 thou/uL (0.11-0.59); %Basophils 0.3 % (0.0-1.0); %Eosinophils 0.7 % (0.0-10.0); %Monocytes 7.9 % (0.0-10.0); Hemoglobin 8.5 g/dL (12.0-16.0); Mean Corpuscular HGB CONC 32.1 g/dL (32.0-36.0); Mean Corpuscular Hemoglobin 28.1 pg (27.0-31.0); Mean Corpuscular Volume 87.5 fL (78.0-98.0); Mean Platelet Volume 9.2 fL (7.4-10.4); Platelet Count 238 thou/uL (130-400); RBC Distribution Width 13.7 % (11.5-14.5); Red Blood Cell (RBC) Count 3.01 mill/uL (4.20-5.40); White Blood Cell (WBC) Count 13.8 thou/uL (4.8-10.8)
[2019-10-08 05:14] LABS: Anion Gap 11 mmol/L (10-20); BUN (Urea Nitrogen) 16 mg/dL (9.8-20.1); Calc. Creatinine Clearance 119 mL/min (70-130); Calcium 8.2 mg/dL (7.8-10.44); Carbon Dioxide 25 mmol/L (22-29); Chloride 104 mmol/L (98-107); Estimated GFR-MDRD 89; Glucose 261 mg/dL (70-105); Potassium 4.5 mmol/L (3.5-5.1); Sodium 135 mmol/L (136-145)
[2019-10-08] MEDS: Ketorolac Tromethamine 30 MG/ML VIAL IVP SCH ×4 (06:16→23:50)
[2019-10-08] MEDS: Insulin Regular 300 UNITS/3 ML VIAL SC PRN ×4 (06:21→20:50)
[2019-10-08] MEDS ORDERED: diphenhydrAMINE 25 MG CAP PO PRN (07:35)
[2019-10-08] MEDS ORDERED: Artificial Tears 18 DROP/0.9 ML EA EYE PRN (07:35)
[2019-10-08] MEDS ORDERED: Bisacodyl 10 MG SUPP PR PRN (07:35)
[2019-10-08] MEDS ORDERED: Bisacodyl 5 MG TAB PO PRN (07:35)
[2019-10-08] MEDS ORDERED: Nitroglycerin 0.4 MG TAB (25 Tab Bottle) SL PRN (07:35)
[2019-10-08] MEDS ORDERED: Zolpidem Tartrate 5 MG TAB PO PRN (07:35)
[2019-10-08] MEDS ORDERED: Guaifenesin DM 100-10/5 ML UDCUP PO PRN (07:35)
[2019-10-08] MEDS ORDERED: Mineral Oil ENEMA PR PRN (07:35)
[2019-10-08] MEDS ORDERED: Mag-Al 1200 mg/1200 mg/30 ML UDCUP PO PRN (07:35)
[2019-10-08] MEDS ORDERED: Dextrose 50% Abboject 50 ML SYRINGE SLOW IVP PRN (07:44)
[2019-10-08] MEDS ORDERED: Dextrose 5% in Water 1,000 ML IV PRN (07:44)
--- NOTE | 2019-10-08 08:18 | RAD ---
EXAM: Single view of the chest HISTORY: Status post open heart surgery COMPARISON: 10/07/2019 FINDINGS: Single view of the chest shows an enlarged but stable cardiomediastinal silhouette. The ce ntral venous catheter is unchanged in position. The patient is status post sternotomy. The left chest tube has been removed without evidence of pneumothorax. There is no evidence of consolidation, mass, or pleural effusion. The bones are unremarkable. IMPRESSION: Status post chest tube removal without evidence of pneumothorax.
[2019-10-08] MEDS: Carvedilol 3.125 MG TAB PO SCH ×2 (08:31→17:19)
[2019-10-08] MEDS: Potassium Chloride 10 MEQ TAB PO SCH ×2 (08:32→17:19)
[2019-10-08] MEDS: Alogliptin 25 MG TAB PO SCH (08:32)
[2019-10-08] MEDS: Aspirin 325 mg Enteric Coated Tablet PO SCH (08:32)
[2019-10-08] MEDS: Famotidine 20 MG TAB PO SCH ×2 (08:33→19:19)
[2019-10-08] MEDS: Magnesium 2 GM/50 ML 2 GM in Premix Bag 1 BAG IVPB SCH (08:34)
[2019-10-08] MEDS: Furosemide 40 MG TAB PO SCH ×2 (08:34→12:26)
[2019-10-08] MEDS: Rosuvastatin 20 MG TAB PO SCH (19:18)
--- NOTE | 2019-10-08 21:27 | PDOC.HOSPP ---
- Subjective Subjective: Doing much better today. Pain has improved significantly. Discussed with nurse. Blood sugars are high and she is not on her metformin. - Objective Vital Signs & Weight: Vital Signs (12 hours) Temp Pulse Pulse BP BP Pulse Ox 10/08/19 20:00 98.6 F 10/08/19 19:38 92 L 10/08/19 15:00 98.5 F 10/08/19 14:24 103 H 100 113/80 94/66 10/08/19 12:47 116 H 97 101/80 113/75 10/08/19 11:00 98.4 F Weight Admit Weight 199 lb Weight 207 lb 10.807 oz Most Recent Monitor Data Heart Rate from ECG 95 NIBP 102/69 NIBP BP-Mean 80 Respiration from ECG 24 SpO2 92 I&O: 10/07/19 10/08/19 10/09/19 06:59 06:59 06:59 Intake Total 1686.8 770 1090 Output Total 1208 2510 1805 Balance 797.6 -6113 -143 Result Diagrams: 10/08/19 04:10 10/08/19 04:10 Additional Labs: Accuchecks 10/08/19 10/07/19 10/07/19 06:24 21:21 06:22 POC Glucose 229 H 353 H 161 H 10/07/19 10/07/19 10/07/19 05:27 04:33 03:20 POC Glucose 155 H 147 H 175 H 10/07/19 10/07/19 02:16 01:26 POC Glucose 185 H 188 H Hospitalist ROS - Medication Medications: Active Medications Generic Name Dose Route Start Last Admin Trade Name Freq PRN Reason Stop Dose Admin Hydrocodone Bitart/Acetaminophen 1 tab 10/06/19 10:48 10/07/19 23:31 [place] 5/325 PO 1 tab Q4H PRN Administration Moderate Pain (4-6) Hydrocodone Bitart/Acetaminophen 2 tab 10/06/19 10:48 10/08/19 20:49 [place] 5/325 PO 2 tab Q4H PRN Administration Severe Pain (7-10) Albuterol/Ipratropium 3 ml 10/06/19 10:48 10/07/19 20:26 Duoneb NEB 3 ml V1TD-QT PRN Administration SHORTNESS OF BREATH Aspirin 325 mg 10/08/19 09:00 10/08/19 08:32 Ecotrin PO 325 mg DAILY ISABEL Administration Carvedilol 3.125 mg 10/07/19 08:00 10/08/19 17:19 Coreg PO 3.125 mg BID-WM ISABEL Administration Famotidine 20 mg 10/07/19 09:00 10/08/19 19:19 Pepcid PO 20 mg BID ISABEL Administration Furosemide 40 mg 10/08/19 09:00 10/08/19 12:26 Lasix PO 40 mg 0900,1400 ISABEL Administration Insulin Human Regular 0 units 10/08/19 07:44 10/08/19 20:50 Humulin R SC 10 unit Q4H PRN Administration POST OP SLIDING SCALE Protocol Ketorolac Tromethamine 30 mg 10/06/19 12:00 10/08/19 17:20 Toradol IVP 10/09/19 12:01 30 mg Q6HR ISABEL Administration Ondansetron HCl 4 mg 10/06/19 10:48 10/07/19 07:18 Zofran IVP 4 mg Q6H PRN Administration Nausea/Vomiting Potassium Chloride 10 meq 10/08/19 08:00 10/08/19 17:19 Klor-Con 10 PO 10 meq BID-WM ISABEL Administration Rosuvastatin Calcium 40 mg 10/07/19 21:00 10/08/19 19:18 Crestor PO 40 mg HS ISABEL Administration - Exam Heart: RRR, no murmur, no gallops, no rubs, normal peripheral pulses Respiratory: CTAB, no wheezes, no rales, no ronchi, normal chest expansion, no tachypnea, normal percussion Gastrointestinal: soft, non-tender, non-distended, normal bowel sounds, no palpable masses, no hepatomegaly, no splenomegaly, no bruit Extremities: no cyanosis, no clubbing, no edema Musculoskeletal: normal tone, normal strength, no muscle wasting Psychiatric: normal affect, normal behavior, A&O x 3 Hosp A/P (1) CAD (coronary artery disease) Code(s): I25.10 - ATHSCL HEART DISEASE OF [place] CORONARY ARTERY W/O ANG PCTRS Status: Chronic Qualifiers: Coronary Disease-Associated Artery/Lesion type: [place] artery [place] vs. 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 Post CABG x 3 Pain management. Blood sugars increased a bit. Resume the metformin. BP well controlled. Mobility as tolerated. Continue IS. [facility] following.
[2019-10-09] MEDS: HYDROcodone/Acetaminophen 5/325 mg Tablet PO PRN ×4 (03:35→19:20)
[2019-10-09] MEDS: Ketorolac Tromethamine 30 MG/ML VIAL IVP SCH ×2 (05:16→11:37)
[2019-10-09] MEDS: Insulin Regular 300 UNITS/3 ML VIAL SC PRN ×3 (06:33→18:21)
[2019-10-09] MEDS: Carvedilol 3.125 MG TAB PO SCH ×2 (08:21→17:15)
[2019-10-09] MEDS: Furosemide 40 MG TAB PO SCH ×2 (08:21→14:34)
[2019-10-09] MEDS: Famotidine 20 MG TAB PO SCH ×2 (08:21→19:23)
[2019-10-09] MEDS: Potassium Chloride 10 MEQ TAB PO SCH ×2 (08:21→17:16)
[2019-10-09] MEDS: Aspirin 325 mg Enteric Coated Tablet PO SCH (08:21)
[2019-10-09] MEDS: metFORMIN 500 MG TAB PO SCH ×2 (08:22→17:16)
[2019-10-09] MEDS: Rosuvastatin 20 MG TAB PO SCH (19:23)
[2019-10-09] MEDS ORDERED: Dextrose 5% in Water 1,000 ML IV PRN (20:13)
[2019-10-09] MEDS ORDERED: HumaLOG 300 UNITS/3 ML VIAL SC PRN ×2 (20:13→20:16)
[2019-10-09] MEDS ORDERED: Dextrose 50% Abboject 50 ML SYRINGE SLOW IVP PRN (20:13)
--- NOTE | 2019-10-09 20:20 | PDOC.HOSPP ---
- Subjective Subjective: Feeling well. Had some increased soreness with increased activity. - Objective Vital Signs & Weight: Vital Signs (12 hours) Temp Pulse Pulse Pulse Resp BP BP 10/09/19 17:17 97 10/09/19 15:34 98.7 F 107 H 12 10/09/19 13:50 117 H 97 115/72 109/63 10/09/19 12:04 10/09/19 09:38 114 H 103 H 105/71 102/76 BP BP Pulse Ox Pulse Ox Pulse Ox 10/09/19 17:17 122/69 10/09/19 15:34 99/59 L 94 L 10/09/19 13:50 93 L 96 10/09/19 12:04 94 L 10/09/19 09:38 Weight Admit Weight 199 lb Weight 212 lb 8.41 oz Most Recent Monitor Data Heart Rate from ECG 105 NIBP 105/71 NIBP BP-Mean 82 Respiration from ECG 20 SpO2 96 I&O: 10/08/19 10/09/19 10/10/19 06:59 06:59 06:59 Intake Total 770 1140 360 Output Total 2510 2230 250 Balance -1740 -1090 110 Result Diagrams: 10/08/19 04:10 10/08/19 04:10 Additional Labs: Accuchecks 10/09/19 10/09/19 10/09/19 17:57 10:50 06:35 POC Glucose 251 H 322 H 242 H 10/05/19 17:06 POC Glucose 96 Hospitalist ROS - Medication Medications: Active Medications Generic Name Dose Route Start Last Admin Trade Name Freq PRN Reason Stop Dose Admin Hydrocodone Bitart/Acetaminophen 1 tab 10/06/19 10:48 10/07/19 23:31 [place] 5/325 PO 1 tab Q4H PRN Administration Moderate Pain (4-6) Hydrocodone Bitart/Acetaminophen 2 tab 10/06/19 10:48 10/09/19 19:20 [place] 5/325 PO 2 tab Q4H PRN Administration Severe Pain (7-10) Albuterol/Ipratropium 3 ml 10/06/19 10:48 10/07/19 20:26 Duoneb NEB 3 ml [id number] PRN Administration SHORTNESS OF BREATH Aspirin 325 mg 10/08/19 09:00 10/09/19 08:21 Ecotrin PO 325 mg DAILY ISABEL Administration Carvedilol 3.125 mg 10/07/19 08:00 10/09/19 17:15 Coreg PO 3.125 mg BID-WM ISABEL Administration Famotidine 20 mg 10/07/19 09:00 10/09/19 19:23 Pepcid PO 20 mg BID ISABEL Administration Furosemide 40 mg 10/08/19 09:00 10/09/19 14:34 Lasix PO 40 mg 0900,1400 ISABEL Administration Insulin Human Regular 0 units 10/08/19 07:44 10/09/19 18:21 Humulin R SC 8 unit Q4H PRN Administration POST OP SLIDING SCALE Protocol Metformin HCl 1,000 mg 10/09/19 08:00 10/09/19 17:16 Glucophage PO 1,000 mg BID-WM ISABEL Administration Ondansetron HCl 4 mg 10/06/19 10:48 10/07/19 07:18 Zofran IVP 4 mg Q6H PRN Administration Nausea/Vomiting Potassium Chloride 10 meq 10/08/19 08:00 10/09/19 17:16 Klor-Con 10 PO 10 meq BID-WM ISABEL Administration Rosuvastatin Calcium 40 mg 10/07/19 21:00 10/09/19 19:23 Crestor PO 40 mg HS ISABEL Administration - Exam General Appearance: NAD, awake alert Heart: RRR, no murmur, no gallops, no rubs, normal peripheral pulses Respiratory: CTAB, no wheezes, no rales, no ronchi, normal chest expansion, no tachypnea, normal percussion Gastrointestinal: soft, non-tender, non-distended, normal bowel sounds, no palpable masses, no hepatomegaly, no splenomegaly, no bruit Extremities: no cyanosis, no clubbing, no edema Skin: normal turgor Musculoskeletal: normal tone, normal strength Psychiatric: normal affect, normal behavior, A&O x 3 Hosp A/P (1) CAD (coronary artery disease) Code(s): I25.10 - ATHSCL HEART DISEASE OF [place] CORONARY ARTERY W/O ANG PCTRS Status: Chronic Qualifiers: Coronary Disease-Associated Artery/Lesion type: [place] artery [place] vs. transplanted heart: [place] heart Associated angina: without angina Qualified Code(s): I25.10 - Atherosclerotic heart disease of [place] coronary artery without angina pectoris (2) DM type 2 (diabetes mellitus, type 2) Status: Chronic Qualifiers: Diabetes mellitus intermediate insulin use: with intermediate use Diabetes mellitus complication status: with hyperglycemia Qualified Code(s): E11.65 - Type 2 diabetes mellitus with hyperglycemia; Z79.4 - prison (current) use of insulin (3) Dyslipidemia Code(s): E78.5 - HYPERLIPIDEMIA, UNSPECIFIED Status: Chronic (4) HTN (hypertension) Code(s): I10 - ESSENTIAL (PRIMARY) HYPERTENSION Status: Chronic Qualifiers: Hypertension type: essential hypertension Qualified Code(s): I10 - Essential (primary) hypertension (5) Status post aorto-coronary artery bypass graft Code(s): Z95.1 - PRESENCE OF AORTOCORONARY BYPASS GRAFT Status: Acute - Plan Doing well. Post CABG x 3 Pain management. Blood sugars increased Resume the metformin. Alogliptin had been stopped when metformin resumed. It has now been restarted as well. Her A1c is 10 and the metformin / Trajenta was not adequate in the pre admission time. Adding mild SSI as well. Change diet to carb consistent heart healthy. Add some long acting insulin. She was on high dose insulin pre-admission. BP well controlled. Mobility as tolerated. Continue IS. [facility] following.
[2019-10-10] MEDS: HYDROcodone/Acetaminophen 5/325 mg Tablet PO PRN ×2 (03:19→09:25)
[2019-10-10] MEDS ORDERED: Carvedilol 3.125 MG TAB PO SCH (07:04)
[2019-10-10] MEDS ORDERED: Alogliptin 25 MG TAB PO SCH (09:00)
[2019-10-10] MEDS ORDERED: Insulin Glargine 30 UNITS in Pre-Filled Syringe 1 EACH SC SCH (09:00)
[2019-10-10] MEDS ORDERED: Hydrochlorothiazide 25 MG TAB PO SCH (09:00)
[2019-10-10] MEDS ORDERED: Insulin Glargine 40 UNITS in Pre-Filled Syringe 1 EACH SC SCH (09:00)
[2019-10-10] MEDS: Aspirin 325 mg Enteric Coated Tablet PO SCH (09:20)
[2019-10-10] MEDS: metFORMIN 500 MG TAB PO SCH (09:20)
[2019-10-10] MEDS: Furosemide 40 MG TAB PO SCH ×2 (09:20→14:36)
[2019-10-10] MEDS: Potassium Chloride 10 MEQ TAB PO SCH (09:20)
[2019-10-10] MEDS: Famotidine 20 MG TAB PO SCH (09:20)
[2019-10-10] MEDS: Insulin Regular 300 UNITS/3 ML VIAL SC PRN (13:01)
--- NOTE | 2019-10-10 14:10 | PDOC.HOSPP ---
- Subjective Subjective: Doing great. Feels ready to go home. Discussed her DM regimen at home. She says she actually takes Levemir 120 u q am and 85 u q pm. Says her regimen has been changed numerous times recently. Feels like she does best with the Levemir and the Metformin. Reports fairly normal readings recently prior to admission (although A1c was >10). - Objective Vital Signs & Weight: Vital Signs (12 hours) Temp Pulse Pulse Pulse Resp BP BP 10/10/19 11:27 97.9 F 90 23 H 10/10/19 08:53 101 H 99 108/62 119/69 10/10/19 07:36 98.4 F 103 H 20 10/10/19 07:15 10/10/19 04:23 98.3 F 101 H 16 10/10/19 04:00 98.3 F 101 H 16 BP BP Pulse Ox Pulse Ox Pulse Ox 10/10/19 11:27 106/62 96 10/10/19 08:53 96 97 10/10/19 07:36 105/68 95 10/10/19 07:15 95 10/10/19 04:23 108/70 91 L 10/10/19 04:00 108/70 91 L Weight Admit Weight 199 lb Weight 196 lb Most Recent Monitor Data Heart Rate from ECG 105 NIBP 105/71 NIBP BP-Mean 82 Respiration from ECG 20 SpO2 96 I&O: 10/09/19 10/10/19 10/11/19 06:59 06:59 06:59 Intake Total 1140 360 Output Total 2230 250 Balance -1090 110 Result Diagrams: 10/08/19 04:10 10/08/19 04:10 Additional Labs: Accuchecks 10/10/19 10/09/19 05:21 17:57 POC Glucose 221 H 251 H Hospitalist ROS - Medication Medications: Active Medications Generic Name Dose Route Start Last Admin Trade Name Freq PRN Reason Stop Dose Admin Hydrocodone Bitart/Acetaminophen 1 tab 10/06/19 10:48 10/07/19 23:31 [place] 5/325 PO 1 tab Q4H PRN Administration Moderate Pain (4-6) Hydrocodone Bitart/Acetaminophen 2 tab 10/06/19 10:48 10/10/19 09:25 [place] 5/325 PO 2 tab Q4H PRN Administration Severe Pain (7-10) Albuterol/Ipratropium 3 ml 10/06/19 10:48 10/07/19 20:26 Duoneb NEB 3 ml [id number] PRN Administration SHORTNESS OF BREATH Alogliptin Benzoate 25 mg 10/10/19 09:00 10/10/19 09:20 Alogliptin PO 25 mg DAILY ISABEL Administration Aspirin 325 mg 10/08/19 09:00 10/10/19 09:20 Ecotrin PO 325 mg DAILY ISABEL Administration Carvedilol 6.25 mg 10/10/19 07:04 10/10/19 09:21 Coreg PO 6.25 mg BID-WM ISABEL Administration Famotidine 20 mg 10/07/19 09:00 10/10/19 09:20 Pepcid PO 20 mg BID ISABEL Administration Furosemide 40 mg 10/08/19 09:00 10/10/19 09:20 Lasix PO 40 mg 0900,1400 ISABEL Administration Hydrochlorothiazide 25 mg 10/10/19 09:00 10/10/19 09:20 Hydrochlorothiazide PO 25 mg DAILY ISABEL Administration Insulin Glargine 40 units/ 0.4 mls @ 0 mls/hr 10/10/19 09:00 10/10/19 10:34 Miscellaneous Medication SC 0.4 mls QAM ISABEL Administration As Directed Insulin Human Regular 0 units 10/08/19 07:44 10/10/19 13:01 Humulin R SC 10 unit Q4H PRN Administration POST OP SLIDING SCALE Protocol Metformin HCl 1,000 mg 10/09/19 08:00 10/10/19 09:20 Glucophage PO 1,000 mg BID-WM ISABEL Administration Ondansetron HCl 4 mg 10/06/19 10:48 10/07/19 07:18 Zofran IVP 4 mg Q6H PRN Administration Nausea/Vomiting Potassium Chloride 10 meq 10/08/19 08:00 10/10/19 09:20 Klor-Con 10 PO 10 meq BID-WM ISABEL Administration Rosuvastatin Calcium 40 mg 10/07/19 21:00 10/09/19 19:23 Crestor PO 40 mg HS ISABEL Administration - Exam General Appearance: NAD, awake alert Heart: RRR, no murmur, no gallops, no rubs, normal peripheral pulses Respiratory: CTAB, no wheezes, no rales, no ronchi, normal chest expansion, no tachypnea, normal percussion Gastrointestinal: soft, non-tender, non-distended, normal bowel sounds, no palpable masses, no hepatomegaly, no splenomegaly, no bruit Skin: normal turgor, no lesions, no rashes Musculoskeletal: normal tone, normal strength, no muscle wasting Psychiatric: normal affect, normal behavior, A&O x 3 Hosp A/P (1) CAD (coronary artery disease) Code(s): I25.10 - ATHSCL HEART DISEASE OF [place] CORONARY ARTERY W/O ANG PCTRS Status: Chronic Qualifiers: Coronary Disease-Associated Artery/Lesion type: [place] artery [place] vs. 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 Post CABG x 3 Pain management. Coreg increased. Blood sugars increased Resume the metformin/gliptin. Added Lantus for this morning and Dr. Baires increased the dose. Has SSI ordered as well. She is on a huge dose of the Levemir and based on A1c was not where she needed to be with that. Will need close OP follow up with PCP for management. BP well controlled. Mobility as tolerated. Continue IS. [facility] following. Possibly home later.
--- NOTE | 2019-10-10 14:34 | DIS ---
DATE OF ADMISSION: 09/27/2019 DATE OF DISCHARGE: 10/10/2019 DIAGNOSES: 1. Coronary artery disease, status post [id number] myocardial infarction. 2. Diabetes mellitus. 3. Hypertension. 4. Dyslipidemia. PROCEDURES: 1. Cardiac catheterization. 2. Coronary artery bypass grafting x3. a. Left internal mammary artery to LAD. b. Reverse saphenous vein to OM. c. Reverse saphenous vein to PDA. DESCRIPTION OF HOSPITAL STAY: Ms. Wheeler is a 54-year-old woman who presented with [id number] myocardial infarction, was taken to the collaborating supervising physician and found to have severe 3-vessel disease. She has been given Plavix in the emergency department and therefore, awaited a week to undergo her surgery. She underwent bypass as above on 10/06. She has done well postoperatively. She has had no rhythm disturbances. At the time of discharge, she is ambulatory, tolerating regular diet, having good bowel and bladder function. Incisions are clean and dry without evidence of infection. DISCHARGE MEDICATIONS: Include: 1. Aspirin 325 mg daily. 2. Estradiol 2 mg daily. 3. Hydrochlorothiazide 25 mg daily. 4. Insulin per her home regimen. 5. Tradjenta 5 mg daily. 6. Meloxicam 15 mg daily. 7. Metformin 1000 mg b.i.d. 8. Crestor 20 mg at bedtime. 9. Coreg 6.25 mg b.i.d. 10. Lasix 40 mg b.i.d. FOLLOWUP: With in [address] Cullen in a month. Job ID: [id number]
[2019-10-10 16:27] VITALS: BP 118/70; TEMP 98.3
== END 2019-10-10 16:15 | disposition home or self-care (01) | DRG 234 ==
LOC: ERS 17:57 → OBSVTOIN 20:11 → 2SW 20:11 → 2NO 09-30 20:40 → CCU 10-06 06:31 → 2NO 10-09 12:00
PROVIDERS: ADMIT Internal Medicine; ATTEND Internal Medicine
PROC: 4A023N7 Measurement of Cardiac Sampling and Pressure, Left Heart, Percutaneous Approach (ICD-10-PCS; 2019-09-30)
PROC: B2111ZZ Fluoroscopy of Multiple Coronary Arteries using Low Osmolar Contrast (ICD-10-PCS; 2019-09-30)
PROC: B2151ZZ Fluoroscopy of Left Heart using Low Osmolar Contrast (ICD-10-PCS; 2019-09-30)
PROC: 02100Z9 Bypass Coronary Artery, One Artery from Left Internal Mammary, Open Approach (ICD-10-PCS; principal; 2019-10-06)
PROC: 0211093 Bypass Coronary Artery, Two Arteries from Coronary Artery with Autologous Venous Tissue, Open Approach (ICD-10-PCS; 2019-10-06)
PROC: 06BP4ZZ Excision of Right Saphenous Vein, Percutaneous Endoscopic Approach (ICD-10-PCS; 2019-10-06)
PROC: 5A1221Z Performance of Cardiac Output, Continuous (ICD-10-PCS; 2019-10-06)
DX: I21.4 Non-ST elevation (NSTEMI) myocardial infarction (principal); I25.110 Atherosclerotic heart disease of native coronary artery with unstable angina pectoris; I10 Essential (primary) hypertension; E78.5 Hyperlipidemia, unspecified; I08.1 Rheumatic disorders of both mitral and tricuspid valves; E66.9 Obesity, unspecified; E78.00 Pure hypercholesterolemia, unspecified; E11.65 Type 2 diabetes mellitus with hyperglycemia; Z90.710 Acquired absence of both cervix and uterus; Z88.0 Allergy status to penicillin; Z79.82 Long term (current) use of aspirin; Z79.899 Other long term (current) drug therapy; Z79.4 Long term (current) use of insulin; Z68.29 Body mass index [BMI] 29.0-29.9, adult; Z88.8 Allergy status to other drugs, medicaments and biological substances
CPT/HCPCS: 36415; 36416; 36430; 71045; 71275; 78452; 80048; 80053; 80061; 82805; 82947; 83036; 83690; 84484; 85025; 85347; 85610; 85730; 86850; 86900; 86901; 93005; 93010; 93017; 93306; 93458; 93798; 94640; 94760; 99152; A9500; C1769; J0153; J0171; J1100; J1642; J1644; J1650; J1815; J1885; J1940; J1956; J2001; J2250; J2370; J2405; J2440; J2704; J2720; J3010; J3370; J3475; J3480; J3490; J7620; P9045; Q9967; S0017; S0020; S0028

== ENCOUNTER 2019-12-01 12:08 | Emergency (ER) | payer OTHER ==
[2019-12-01] MEDS ORDERED: Acetaminophen 500 MG TAB ONE (12:42)
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
== END 2019-12-01 13:12 | disposition home or self-care (01) ==
LOC: ERS 12:08
DX: R07.89 Other chest pain (principal); I10 Essential (primary) hypertension; E11.9 Type 2 diabetes mellitus without complications; E78.00 Pure hypercholesterolemia, unspecified; Z79.899 Other long term (current) drug therapy; Z79.84 Long term (current) use of oral hypoglycemic drugs; Z79.82 Long term (current) use of aspirin; V89.2XXA Person injured in unspecified motor-vehicle accident, traffic, initial encounter
CPT/HCPCS: 71045; 93005

== ENCOUNTER 2020-11-12 14:02 | Outpatient (CLI) | payer OTHER ==
--- NOTE | 2020-11-12 14:30 | RAD ---
EXAM: XR Lumbar Spine 2 Or 3 View PROVIDED CLINICAL HISTORY: Bilateral foot numbness and tingling. Pain in left hip. COMPARISON: None FINDINGS: There are 5 nonrib-bearing lumbar-type vertebral bodies. The vertebral body heights and intervertebra l disc spaces are within normal limits. No fracture or subluxation is seen involving the lumbar spine. 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 IMPRESSION: No acute findings involving the lumbar spine. Given neurological deficit, MRI lumbar spine may be hel pful for further evaluation.
== END 2020-11-12 14:03 | disposition home or self-care (01) ==
LOC: SCSRAD 14:02
PROVIDERS: ATTEND Internal Medicine Cardiovascular Disease
DX: R20.2 Paresthesia of skin (principal); R20.0 Anesthesia of skin
CPT/HCPCS: 72100

== ENCOUNTER 2021-01-17 09:38 | Outpatient (CLI) | payer OTHER ==
[2021-01-17 12:01] LABS: Creatinine, Urine 91.49 mg/dL (47-110); Microalbumin Urine Less than 1.0 mg/dL (0.5-50.0)
[2021-01-17 12:04] LABS: Hemoglobin A1c 7.4 % (4.0-6.0)
[2021-01-17 12:36] LABS: ALT (SGPT) 14 U/L (8-55); AST (SGOT) 17 U/L (5-34); Albumin 4.1 g/dL (3.5-5.0); Alkaline Phosphatase 87 U/L (40-110); Anion Gap 14 mmol/L (10-20); BUN (Urea Nitrogen) 21 mg/dL (9.8-20.1); Bilirubin, Total 0.6 mg/dL (0.2-1.2); Calc. Creatinine Clearance 0 mL/min (70-130); Calcium 9.1 mg/dL (7.8-10.44); Carbon Dioxide 30 mmol/L (22-29); Cardiac Risk 3.9 (Less than 4.5); Chloride 99 mmol/L (98-107); Cholesterol 201 mg/dl (< 200 Desired); Glucose 86 mg/dL (70-105); HDL Cholesterol 52 mg/dL (>60 Neg Risk); LDL Cholesterol, Calculated 116 mg/dL; Potassium 3.8 mmol/L (3.5-5.1); Protein, Total 8.1 g/dL (6.0-8.3); Sodium 139 mmol/L (136-145); Triglycerides 164 mg/dL (Less than 150)
== END 2021-01-17 09:39 | disposition home or self-care (01) ==
LOC: SCSRAD 09:38
PROVIDERS: ATTEND Internal Medicine
DX: R52 Pain, unspecified (principal); E11.9 Type 2 diabetes mellitus without complications
CPT/HCPCS: 36415; 71046; 80053; 80061; 82043; 83036

== ENCOUNTER 2021-03-24 09:52 | Inpatient (IN) | payer OTHER ==
[2021-03-24] MEDS ORDERED: Iopamidol-370 76% 500 ML 1 ML ONE (10:11)
[2021-03-24 12:50] LABS: Bilirubin Negative (Negative); Blood, Urine Negative (Negative); Clarity Clear (Clear); Glucose, Urine (Dipstick) Normal (Negative); Ketone, Urine Negative (Negative); Leukocyte Negative Leu/uL (Negative); Nitrite Negative (Negative); Protein, Urine (Dipstick) 10 mg/dL (Neg-Trace); Specific Gravity, Urine 1.023 (1.002-1.036); Urobilinogen Normal mg/dL (Less than 2); pH, Urine 5.5 (5.0-9.0)
[2021-03-24 13:19] LABS: Actual Bicarbonate (HCO3v) 20 mEq/L (22-28); Analyzer IN Cardio ER; Base Excess -3.1 mEq/L (-2.0 to +3.0); Calcium, Ionized (venous) 1.01 mmol/L (1.16-1.32); Chloride (VBG) 100 mmol/L (98-106); Hemoglobin (Hb) 13.4 g/dL (11.7-16.0); Potassium (VBG) 3.95 mmol/L (3.70-5.30); Sodium 132.6 mmol/L (133-146); pH (venous) 7.43 (7.32-7.43)
[2021-03-24 13:33] LABS: #Eosinphils 0.2 thou/uL (0.0-0.7); #Lymphocytes 2.9 thou/uL (1.20-3.40); #Monocytes 0.5 thou/uL (0.11-0.59); #Neutrophils 8.4 thou/uL (1.40-6.50); %Basophils 0.1 % (0.0-1.0); %Eosinophils 1.6 % (0.0-10.0); %Lymphocytes 23.9 % (21.0-51.0); %Monocytes 4.1 % (0.0-10.0); %Neutrophils 70.3 % (42.0-75.0); Hemoglobin 12.6 g/dL (12.0-16.0); Mean Corpuscular HGB CONC 31.6 g/dL (32.0-36.0); Mean Corpuscular Hemoglobin 27.4 pg (27.0-31.0); Mean Corpuscular Volume 86.8 fL (78.0-98.0); Mean Platelet Volume 8.7 fL (7.4-10.4); Platelet Count 326 thou/uL (130-400); RBC Distribution Width 14.5 % (11.5-14.5); Red Blood Cell (RBC) Count 4.59 mill/uL (4.20-5.40); White Blood Cell (WBC) Count 11.9 thou/uL (4.8-10.8)
[2021-03-24 14:00] LABS: ALT (SGPT) 13 U/L (8-55); AST (SGOT) 14 U/L (5-34); Albumin 3.8 g/dL (3.5-5.0); Alkaline Phosphatase 96 U/L (40-110); Anion Gap 18 mmol/L (10-20); BUN (Urea Nitrogen) 13 mg/dL (9.8-20.1); Bilirubin, Total 0.5 mg/dL (0.2-1.2); Calc. Creatinine Clearance 0 mL/min (70-130); Calcium 9.3 mg/dL (7.8-10.44); Carbon Dioxide 21 mmol/L (22-29); Chloride 99 mmol/L (98-107); Globulin 4.5 g/dL (2.4-3.5); Glucose 122 mg/dL (70-105); Lipase 51 U/L (8-78); Potassium 3.7 mmol/L (3.5-5.1); Protein, Total 8.3 g/dL (6.0-8.3); Sodium 134 mmol/L (136-145)
[2021-03-24 15:55] LABS: SARS-CoV-2 NAA Rapid Test Not Detected (NotDetected)
[2021-03-24] MEDS ORDERED: Piperacillin/Tazobactam 4.5 GM VIAL ONE (16:03)
[2021-03-24] MEDS ORDERED: Bupivacaine 0.25% HCL 30 ML VIAL ONE (17:03)
[2021-03-24] MEDS ORDERED: Lidocaine 1% w/Epinephrine 1:100K 20 ML VIAL ONE (17:03)
[2021-03-24] MEDS ORDERED: Fentanyl 100 MCG/2 ML VIAL ONE ×3 (17:11→19:59)
[2021-03-24] MEDS ORDERED: Rocuronium Bromide 10 MG/ML (10ML VIAL) ONE (17:52)
[2021-03-24] MEDS ORDERED: Ondansetron PF 4 MG/2 ML Vial ONE (17:52)
[2021-03-24] MEDS ORDERED: Glycopyrrolate 0.2 MG/ML 5 ML SYRINGE ONE (17:52)
[2021-03-24] MEDS ORDERED: Dexamethasone 20 MG/5 ML VIAL ONE (17:52)
[2021-03-24] MEDS ORDERED: PROPOFOL 200 MG/20 ML VIAL ONE (17:52)
[2021-03-24] MEDS ORDERED: Lidocaine 1% PF 5 ML VIAL ONE (17:52)
[2021-03-24] MEDS ORDERED: Morphine 2 MG/ML VIAL SLOW IVP PRN (19:07)
[2021-03-24] MEDS ORDERED: Ondansetron ODT 4 MG TAB PO PRN (19:07)
[2021-03-24] MEDS ORDERED: Dextrose 50% Abboject 50 ML SYRINGE SLOW IVP PRN (19:07)
[2021-03-24] MEDS ORDERED: Morphine 4 MG/ML VIAL SLOW IVP PRN (19:07)
[2021-03-24] MEDS ORDERED: HumaLOG 300 UNITS/3 ML VIAL SC PRN ×3 (19:07→21:20)
[2021-03-24] MEDS ORDERED: hydrALAZINE 20 MG/ML VIAL SLOW IVP PRN (19:07)
[2021-03-24] MEDS ORDERED: Ondansetron PF 4 MG/2 ML Vial IVP PRN (19:07)
[2021-03-24] MEDS ORDERED: Dextrose 5% in Water 1,000 ML IV PRN (19:07)
[2021-03-24] MEDS ORDERED: traMADol HCl 50 MG TAB PO PRN ×2 (19:12→19:13)
[2021-03-24] MEDS ORDERED: Acetaminophen 500 MG TAB PO PRN (19:12)
[2021-03-24] MEDS ORDERED: Meperidine HCl/PF 25 MG/ML VIAL ONE (19:24)
[2021-03-24] MEDS ORDERED: Enoxaparin Sodium 40 MG/0.4 ML SYRINGE SC SCH (21:00)
[2021-03-24 21:25] VITALS: BMI 30.7
[2021-03-24 21:58] LABS: Lactic Acid 2.8 mmol/L (0.5-2.2)
[2021-03-24] MEDS: Famotidine 20 MG TAB PO SCH (22:14)
[2021-03-24] MEDS: Ketorolac Tromethamine 30 MG/ML VIAL IVP SCH (23:58)
[2021-03-25] MEDS: Sodium Chloride 0.9% 1,000 ML IV SCH ×3 (00:42→15:34)
[2021-03-25 05:31] LABS: #Lymphocytes 1.1 thou/uL (1.20-3.40); #Monocytes 0.2 thou/uL (0.11-0.59); #Neutrophils 10.4 thou/uL (1.40-6.50); %Basophils 0.1 % (0.0-1.0); %Eosinophils 0.1 % (0.0-10.0); %Lymphocytes 9.2 % (21.0-51.0); %Monocytes 1.4 % (0.0-10.0); %Neutrophils 89.2 % (42.0-75.0); Mean Corpuscular HGB CONC 32.2 g/dL (32.0-36.0); Mean Corpuscular Hemoglobin 27.6 pg (27.0-31.0); Mean Corpuscular Volume 85.8 fL (78.0-98.0); Mean Platelet Volume 8.8 fL (7.4-10.4); Platelet Count 316 thou/uL (130-400); RBC Distribution Width 14.6 % (11.5-14.5); Red Blood Cell (RBC) Count 3.98 mill/uL (4.20-5.40); White Blood Cell (WBC) Count 11.6 thou/uL (4.8-10.8)
[2021-03-25 06:02] LABS: Anion Gap 13 mmol/L (10-20); BUN (Urea Nitrogen) 15 mg/dL (9.8-20.1); Calc. Creatinine Clearance 116 mL/min (70-130); Calcium 8.4 mg/dL (7.8-10.44); Carbon Dioxide 23 mmol/L (22-29); Chloride 101 mmol/L (98-107); Glucose 191 mg/dL (70-105); Potassium 4.1 mmol/L (3.5-5.1); Sodium 133 mmol/L (136-145)
[2021-03-25] MEDS: Ketorolac Tromethamine 30 MG/ML VIAL IVP SCH ×2 (06:24→11:50)
[2021-03-25] MEDS ORDERED: Carvedilol 6.25 MG TAB PO SCH (08:00)
[2021-03-25] MEDS ORDERED: metFORMIN 500 MG TAB PO SCH (08:00)
[2021-03-25] MEDS: Famotidine 20 MG TAB PO SCH (08:55)
[2021-03-25] MEDS ORDERED: Alogliptin 25 MG TAB PO SCH (09:00)
[2021-03-25] MEDS ORDERED: Aspirin 325 mg Enteric Coated Tablet PO SCH (09:00)
[2021-03-25] MEDS ORDERED: Lantus 1000 UNITS/10 ML VIAL SC SCH ×2 (09:00→21:00)
[2021-03-25] MEDS ORDERED: Gabapentin 100 MG CAP PO SCH (09:00)
[2021-03-25] MEDS ORDERED: Hydrochlorothiazide 25 MG TAB PO SCH (09:00)
[2021-03-25 11:08] VITALS: TEMP 97.6
[2021-03-25 16:26] VITALS: BP 115/72
[2021-03-25] MEDS ORDERED: Atorvastatin Calcium 40 MG TAB PO SCH (21:00)
== END 2021-03-25 17:18 | disposition home or self-care (01) | DRG 355 ==
LOC: ERS 09:52 → SURG B 19:07
PROVIDERS: ADMIT Specialist; ATTEND Nurse Practitioner Family
PROC: 0WQF0ZZ Repair Abdominal Wall, Open Approach (ICD-10-PCS; principal; 2021-03-24)
DX: K43.0 Incisional hernia with obstruction, without gangrene (principal); E78.00 Pure hypercholesterolemia, unspecified; Z20.822 Contact with and (suspected) exposure to COVID-19; K21.9 Gastro-esophageal reflux disease without esophagitis; I10 Essential (primary) hypertension; E11.42 Type 2 diabetes mellitus with diabetic polyneuropathy; E11.65 Type 2 diabetes mellitus with hyperglycemia; I25.10 Atherosclerotic heart disease of native coronary artery without angina pectoris; Z79.82 Long term (current) use of aspirin; Z79.4 Long term (current) use of insulin; Z79.899 Other long term (current) drug therapy; Z88.0 Allergy status to penicillin; Z88.8 Allergy status to other drugs, medicaments and biological substances; Z95.1 Presence of aortocoronary bypass graft; Z90.710 Acquired absence of both cervix and uterus
CPT/HCPCS: 36415; 36416; 74177; 80048; 80053; 81003; 82805; 83605; 83690; 85025; 87040; 93005; 96374; J1650; J1815; J1885; J2175; J2543; J3010; S0020; U0002; U0005

== ENCOUNTER 2021-05-17 14:51 | Outpatient (CLI) | payer OTHER | END 2021-05-17 14:52 | disposition home or self-care (01) | LOC: BICCT 14:51 | PROVIDERS: ATTEND Internal Medicine Cardiovascular Disease | DX: R52 Pain, unspecified (principal) | CPT/HCPCS: 71260 ==

== ENCOUNTER 2022-01-13 11:04 | Outpatient (CLI) | payer OTHER ==
[2022-01-13 13:04] LABS: #Basophils 0.1 10x3/uL (0.0-0.2); #Eosinphils 0.1 10x3/uL (0.0-0.5); #Monocytes 0.4 10x3/uL (0.0-1.1); #Neutrophils 5.9 10x3/uL (1.5-8.4); %Basophils 0.6 % (0.0-2.0); %Eosinophils 1.4 % (0.0-6.0); %Lymphocytes 22.9 % (18.0-47.0); %Monocytes 4.4 % (0.0-10.0); %Neutrophils 70.6 % (40.0-75.0); Hemoglobin 11.6 g/dL (12.0-15.5); Mean Corpuscular HGB CONC 31.4 g/dL (32.0-36.0); Mean Corpuscular Volume 86.2 fl (81.6-98.3); Mean Platelet Volume 11.4 fl (7.4-10.4); Platelet Count 338 10x3/uL (150-450); RBC Distribution Width 14.8 % (11.5-14.5); Red Blood Cell (RBC) Count 4.29 10x6/uL (3.90-5.03); White Blood Cell (WBC) Count 8.3 10x3/uL (3.5-10.5)
[2022-01-13 13:35] LABS: ALT (SGPT) 14 U/L (8-55); AST (SGOT) 16 U/L (5-34); Albumin 3.9 g/dL (3.5-5.0); Alkaline Phosphatase 98 U/L (40-110); Anion Gap 16 mmol/L (10-20); BUN (Urea Nitrogen) 16 mg/dL (9.8-20.1); Bilirubin, Total 0.4 mg/dL (0.2-1.2); Calc. Creatinine Clearance 0 mL/min (70-130); Calcium 9.5 mg/dL (7.8-10.44); Carbon Dioxide 26 mmol/L (22-29); Chloride 97 mmol/L (98-107); Globulin 4.2 g/dL (2.4-3.5); Glucose 231 mg/dL (70-105); Potassium 3.9 mmol/L (3.5-5.1); Protein, Total 8.1 g/dL (6.0-8.3); Sodium 135 mmol/L (136-145)
[2022-01-13 22:16] LABS: SARS-CoV-2 PCR by NAA Not Detected (NotDetected)
== END 2022-01-13 11:05 | disposition home or self-care (01) ==
LOC: LABBT 11:04
PROVIDERS: ATTEND Family Medicine
DX: Z01.818 Encounter for other preprocedural examination (principal); Z20.822 Contact with and (suspected) exposure to COVID-19
CPT/HCPCS: 71045; 71046; 80053; 85025; 93005; 93010; U0003; U0005

== ENCOUNTER 2022-01-30 15:07 | Outpatient (CLI) | payer OTHER ==
[2022-01-30 23:34] LABS: SARS-CoV-2 PCR by NAA Not Detected (NotDetected)
== END 2022-01-30 15:08 | disposition home or self-care (01) ==
LOC: LABBT 15:07
PROVIDERS: ATTEND Specialist
DX: D05.11 Intraductal carcinoma in situ of right breast (principal); Z20.822 Contact with and (suspected) exposure to COVID-19
CPT/HCPCS: U0003; U0005

== ENCOUNTER 2022-02-01 06:44 | Day surgery (SDC) | payer OTHER ==
[2022-01-31 11:12] VITALS: BMI 30.9
[2022-02-01] MEDS ORDERED: Ketorolac Tromethamine 30 MG/ML VIAL ONE (11:17)
[2022-02-01] MEDS ORDERED: Acetaminophen 500 MG TAB ONE (11:17)
[2022-02-01] MEDS ORDERED: Scopolamine 1.5 mg/72 hour Patch ONE (11:47)
[2022-02-01] MEDS ORDERED: Midazolam HCl 2 mg/2 ml Vial ONE (12:22)
[2022-02-01] MEDS ORDERED: Bupivacaine 0.25% 10 ML VIAL ONE (12:23)
[2022-02-01] MEDS ORDERED: Isosulfan Blue 50 MG/5 ML VIAL ONE (12:23)
[2022-02-01] MEDS ORDERED: Lidocaine 1% w/Epinephrine 1:100K 20 ML VIAL ONE (12:23)
[2022-02-01] MEDS ORDERED: Famotidine/PF 20 mg/2ml Vial ONE (12:37)
[2022-02-01] MEDS ORDERED: ceFAZolin (BATCH) 2 GM/100 ML BAG ONE (12:44)
[2022-02-01] MEDS ORDERED: Ondansetron PF 4 MG/2 ML Vial ONE (12:58)
[2022-02-01] MEDS ORDERED: Dexamethasone 20 MG/5 ML VIAL ONE (12:58)
[2022-02-01] MEDS ORDERED: PROPOFOL 200 MG/20 ML VIAL ONE (12:58)
[2022-02-01] MEDS ORDERED: Lidocaine 1% PF 5 ML VIAL ONE (12:58)
== END 2022-02-01 15:20 | disposition home or self-care (01) ==
LOC: SDC 06:44
PROVIDERS: ATTEND Specialist
PROC: 07B50ZX Excision of Right Axillary Lymphatic, Open Approach, Diagnostic (ICD-10-PCS; principal; 2022-02-01)
DX: C50.411 Malignant neoplasm of upper-outer quadrant of right female breast (principal); E11.9 Type 2 diabetes mellitus without complications; I10 Essential (primary) hypertension; E78.5 Hyperlipidemia, unspecified; I25.10 Atherosclerotic heart disease of native coronary artery without angina pectoris; I25.2 Old myocardial infarction; Z17.1 Estrogen receptor negative status [ER-]; Z79.4 Long term (current) use of insulin; Z79.82 Long term (current) use of aspirin; Z79.84 Long term (current) use of oral hypoglycemic drugs; Z79.899 Other long term (current) drug therapy; Z88.0 Allergy status to penicillin; Z88.6 Allergy status to analgesic agent; Z88.8 Allergy status to other drugs, medicaments and biological substances; Z95.1 Presence of aortocoronary bypass graft
CPT/HCPCS: 36416; 78195; 88307; 88342; A9541; C1713; J0690; J1100; J1885; J2250; J2405; J2704; Q9968; S0020; S0028

== ENCOUNTER 2022-02-15 13:11 | Outpatient (CLI) | payer OTHER | END 2022-02-15 13:12 | disposition home or self-care (01) | LOC: ULT 13:11 | PROVIDERS: ATTEND Internal Medicine Hematology & Oncology | DX: Z51.11 Encounter for antineoplastic chemotherapy (principal); C50.811 Malignant neoplasm of overlapping sites of right female breast; I34.0 Nonrheumatic mitral (valve) insufficiency; Z79.899 Other long term (current) drug therapy | CPT/HCPCS: 93306 ==

== ENCOUNTER 2022-02-17 11:25 | Outpatient (CLI) | payer OTHER ==
[2022-02-17 23:59] LABS: SARS-CoV-2 PCR by NAA Not Detected (NotDetected)
== END 2022-02-17 11:26 | disposition home or self-care (01) ==
LOC: LABBT 11:25
PROVIDERS: ATTEND Specialist
DX: D05.11 Intraductal carcinoma in situ of right breast (principal); Z20.822 Contact with and (suspected) exposure to COVID-19
CPT/HCPCS: U0003; U0005

== ENCOUNTER 2022-02-22 07:27 | Day surgery (SDC) | payer OTHER ==
[2022-02-20 08:55] VITALS: BMI 31.0
[2022-02-22] MEDS ORDERED: Acetaminophen 500 MG TAB ONE (08:05)
[2022-02-22] MEDS ORDERED: Ketorolac Tromethamine 30 MG/ML VIAL ONE (08:05)
[2022-02-22] MEDS ORDERED: Lidocaine 1% w/Epinephrine 1:100K 20 ML VIAL ONE (09:59)
[2022-02-22] MEDS ORDERED: Bupivacaine PF 0.5% 30 ML VIAL ONE (09:59)
[2022-02-22] MEDS ORDERED: Midazolam HCl 2 mg/2 ml Vial ONE ×2 (10:02→10:04)
[2022-02-22] MEDS ORDERED: fentaNYL Citrate/PF 100 MCG/2 ML SYRINGE ONE (10:02)
[2022-02-22] MEDS ORDERED: Levofloxacin 500 mg/D5W 100 ml Premix Bag ONE (10:04)
[2022-02-22] MEDS ORDERED: Lidocaine 1% PF 5 ML VIAL ONE (10:22)
[2022-02-22] MEDS ORDERED: PROPOFOL 200 MG/20 ML VIAL ONE (10:22)
[2022-02-22] MEDS ORDERED: Ondansetron PF 4 MG/2 ML Vial ONE (10:22)
== END 2022-02-22 12:00 | disposition home or self-care (01) ==
LOC: SDC 07:27
PROVIDERS: ATTEND Specialist
PROC: 02HV33Z Insertion of Infusion Device into Superior Vena Cava, Percutaneous Approach (ICD-10-PCS; principal; 2022-02-22)
PROC: 0JH60WZ Insertion of Totally Implantable Vascular Access Device into Chest Subcutaneous Tissue and Fascia, Open Approach (ICD-10-PCS; principal; 2022-02-22)
DX: C50.111 Malignant neoplasm of central portion of right female breast (principal); E11.9 Type 2 diabetes mellitus without complications; I10 Essential (primary) hypertension; E78.5 Hyperlipidemia, unspecified; I25.2 Old myocardial infarction; I25.10 Atherosclerotic heart disease of native coronary artery without angina pectoris; Z17.1 Estrogen receptor negative status [ER-]; Z79.4 Long term (current) use of insulin; Z79.84 Long term (current) use of oral hypoglycemic drugs; Z79.899 Other long term (current) drug therapy; Z88.0 Allergy status to penicillin; Z88.6 Allergy status to analgesic agent; Z88.8 Allergy status to other drugs, medicaments and biological substances; Z95.1 Presence of aortocoronary bypass graft
CPT/HCPCS: 36416; 71045; C1788; J1642; J1885; J1956; J2250; J2405; J2704; S0020

== ENCOUNTER 2022-05-24 09:17 | Outpatient (CLI) | payer OTHER | END 2022-05-24 09:18 | disposition home or self-care (01) | LOC: BICMRI 09:17 | PROVIDERS: ATTEND Radiology Radiation Oncology | DX: C50.411 Malignant neoplasm of upper-outer quadrant of right female breast (principal) | CPT/HCPCS: A9577; C8908 ==

== ENCOUNTER 2022-05-26 14:11 | Outpatient (CLI) | payer OTHER | END 2022-05-26 14:12 | disposition home or self-care (01) | LOC: LABBT 14:11 | PROVIDERS: ATTEND Specialist | DX: Z20.822 Contact with and (suspected) exposure to COVID-19 (principal) | CPT/HCPCS: 87811 ==

== ENCOUNTER 2022-05-29 06:09 | Day surgery (SDC) | payer OTHER ==
[2022-05-26 10:16] VITALS: BMI 35.9
[2022-05-29] MEDS ORDERED: Lidocaine 2% PF 5 ML VIAL ONE (06:34)
[2022-05-29] MEDS ORDERED: Bupivacaine/Epinephrine 0.25% 30 ML VIAL ONE ×2 (06:34→07:49)
[2022-05-29] MEDS ORDERED: Acetaminophen 500 MG TAB ONE (06:39)
[2022-05-29] MEDS ORDERED: fentaNYL Citrate/PF 100 MCG/2 ML SYRINGE ONE ×2 (06:44→08:33)
[2022-05-29] MEDS ORDERED: Levofloxacin 500 mg/D5W 100 ml Premix Bag ONE (07:01)
[2022-05-29] MEDS ORDERED: Dexamethasone 20 MG/5 ML VIAL ONE (07:30)
[2022-05-29] MEDS ORDERED: Ondansetron PF 4 MG/2 ML Vial ONE (07:30)
[2022-05-29] MEDS ORDERED: Phenylephrine 10 MG/ML VIAL ONE (07:30)
[2022-05-29] MEDS ORDERED: PROPOFOL 200 MG/20 ML VIAL ONE (07:30)
== END 2022-05-29 10:30 | disposition home or self-care (01) ==
LOC: SDC 06:09
PROVIDERS: ATTEND Specialist
PROC: 0HBT0ZZ Excision of Right Breast, Open Approach (ICD-10-PCS; principal; 2022-05-29)
DX: D05.11 Intraductal carcinoma in situ of right breast (principal); N60.31 Fibrosclerosis of right breast; I89.0 Lymphedema, not elsewhere classified; E11.9 Type 2 diabetes mellitus without complications; I10 Essential (primary) hypertension; E78.5 Hyperlipidemia, unspecified; I25.10 Atherosclerotic heart disease of native coronary artery without angina pectoris; I25.2 Old myocardial infarction; Z79.4 Long term (current) use of insulin; Z79.82 Long term (current) use of aspirin; Z79.84 Long term (current) use of oral hypoglycemic drugs; Z79.899 Other long term (current) drug therapy; Z88.0 Allergy status to penicillin; Z88.6 Allergy status to analgesic agent; Z88.8 Allergy status to other drugs, medicaments and biological substances; Z95.1 Presence of aortocoronary bypass graft
CPT/HCPCS: 36416; 88307; 88341; 88342; J1100; J1642; J1956; J2001; J2370; J2405; J2704

== ENCOUNTER 2022-06-20 12:39 | Outpatient (CLI) | payer OTHER | END 2022-06-20 12:40 | disposition home or self-care (01) | LOC: ULT 12:39 | PROVIDERS: ATTEND Internal Medicine Hematology & Oncology | DX: Z51.11 Encounter for antineoplastic chemotherapy (principal); C50.811 Malignant neoplasm of overlapping sites of right female breast; I08.1 Rheumatic disorders of both mitral and tricuspid valves | CPT/HCPCS: 93306 ==

== ENCOUNTER 2022-08-03 12:17 | Outpatient (CLI) | payer OTHER | END 2022-08-03 12:18 | disposition home or self-care (01) | LOC: ULT 12:17 | PROVIDERS: ATTEND Internal Medicine Hematology & Oncology | DX: Z51.11 Encounter for antineoplastic chemotherapy (principal); C50.919 Malignant neoplasm of unspecified site of unspecified female breast; I08.1 Rheumatic disorders of both mitral and tricuspid valves; Z79.899 Other long term (current) drug therapy | CPT/HCPCS: 93306 ==

== ENCOUNTER 2022-11-22 10:08 | Outpatient (CLI) | payer OTHER ==
[2022-11-22] MEDS ORDERED: Heparin 1,000 UNITS/ML VIAL ONE (13:44)
== END 2022-11-22 10:09 | disposition home or self-care (01) ==
LOC: NM 10:08
PROVIDERS: ATTEND Internal Medicine Hematology & Oncology
DX: Z51.11 Encounter for antineoplastic chemotherapy (principal); C50.811 Malignant neoplasm of overlapping sites of right female breast; Z79.899 Other long term (current) drug therapy
CPT/HCPCS: 78472; A9560; J1644

== ENCOUNTER 2022-12-20 10:33 | Emergency (ER) | payer OTHER, SELFPAY ==
[2022-12-20] MEDS ORDERED: Boostrix 0.5 ML (Tdap) VIAL (>/=7 yrs of age) ONE (12:23)
[2022-12-20] MEDS ORDERED: HYDROcodone/Acetaminophen 10/325 mg Tablet ONE (12:24)
[2022-12-20] MEDS ORDERED: Lidocaine 1% PF 5 ML VIAL ONE (12:45)
== END 2022-12-20 15:00 | disposition home or self-care (01) ==
LOC: ERS 10:33
DX: S01.81XA Laceration without foreign body of other part of head, initial encounter (principal); E11.9 Type 2 diabetes mellitus without complications; I10 Essential (primary) hypertension; E78.00 Pure hypercholesterolemia, unspecified; W01.198A Fall on same level from slipping, tripping and stumbling with subsequent striking against other object, initial encounter; Z23 Encounter for immunization
CPT/HCPCS: 12013; 70450; 70486; 90471; 90715

== ENCOUNTER 2023-05-29 14:20 | Emergency (ER) | payer OTHER ==
[2023-05-29 14:54] LABS: #Eosinphils 0.1 thou/uL (0.0-0.7); #Monocytes 0.5 thou/uL (0.11-0.59); #Neutrophils 5.9 thou/uL (1.40-6.50); %Basophils 0.5 % (0.0-1.0); %Eosinophils 1.5 % (0.0-10.0); %Lymphocytes 25.1 % (21.0-51.0); %Monocytes 5.7 % (0.0-10.0); Hemoglobin 11.8 g/dL (12.0-16.0); Mean Corpuscular HGB CONC 31.1 g/dL (32.0-36.0); Mean Corpuscular Hemoglobin 27.1 pg (27.0-31.0); Mean Corpuscular Volume 87.2 fl (78.0-98.0); Mean Platelet Volume 10.9 fL (7.4-10.4); Platelet Count 354 10x3/uL (130-400); RBC Distribution Width 15.5 % (11.5-14.5); Red Blood Cell (RBC) Count 4.36 mill/uL (4.20-5.40); White Blood Cell (WBC) Count 8.8 10x3/uL (4.8-10.8)
[2023-05-29 15:48] LABS: Troponin I Less than 0.010 ng/mL (< 0.028)
[2023-05-29 15:52] LABS: Albumin 4.3 g/dL (3.5-5.0); Anion Gap 16 mmol/L (10-20); BUN (Urea Nitrogen) 23 mg/dL (9.8-20.1); Bilirubin, Total 0.6 mg/dL (0.2-1.2); Calc. Creatinine Clearance 0 mL/min (70-130); Carbon Dioxide 28 mmol/L (22-29); Chloride 99 mmol/L (98-107); Estimated GFR 62; Globulin 4.1 g/dL (2.4-3.5); Glucose 169 mg/dL (70-105); Potassium 4.7 mmol/L (3.5-5.1); Protein, Total 8.4 g/dL (6.0-8.3); Sodium 138 mmol/L (136-145)
[2023-05-29 15:53] LABS: ALT (SGPT) 22 U/L (8-55); AST (SGOT) 23 U/L (5-34); Alkaline Phosphatase 132 U/L (40-110)
== END 2023-05-29 17:35 | disposition home or self-care (01) ==
LOC: ERS 14:20
DX: R00.2 Palpitations (principal); I10 Essential (primary) hypertension; E11.9 Type 2 diabetes mellitus without complications; E78.00 Pure hypercholesterolemia, unspecified; Z79.84 Long term (current) use of oral hypoglycemic drugs; Z79.4 Long term (current) use of insulin
CPT/HCPCS: 36415; 71045; 80053; 84484; 85025; 93005

== ENCOUNTER 2023-08-28 14:47 | Outpatient (CLI) | payer OTHER ==
[2023-08-28 16:33] LABS: #Basophils 0.1 10x3/uL (0.0-0.2); #Eosinphils 0.2 10x3/uL (0.0-0.5); #Monocytes 0.4 10x3/uL (0.0-1.1); #Neutrophils 5.9 10x3/uL (1.5-8.4); %Basophils 0.6 % (0.0-2.0); %Eosinophils 2.3 % (0.0-6.0); %Lymphocytes 23.6 % (18.0-47.0); %Monocytes 4.9 % (0.0-10.0); %Neutrophils 68.5 % (40.0-75.0); Hematocrit 34.3 % (34.9-44.5); Hemoglobin 10.8 g/dL (12.0-15.5); Mean Corpuscular HGB CONC 31.5 g/dL (32.0-36.0); Mean Corpuscular Volume 85.8 fl (81.6-98.3); Mean Platelet Volume 11.6 fl (7.4-10.4); Platelet Count 311 10x3/uL (150-450); RBC Distribution Width 15.6 % (11.5-14.5); White Blood Cell (WBC) Count 8.6 10x3/uL (3.5-10.5)
[2023-08-28 16:37] LABS: Anion Gap 17 mmol/L (10-20); BUN (Urea Nitrogen) 22 mg/dL (9.8-20.1); Calc. Creatinine Clearance 0 mL/min (70-130); Calcium 9.7 mg/dL (7.8-10.44); Carbon Dioxide 21 mmol/L (22-29); Chloride 107 mmol/L (98-107); Estimated GFR 78; Glucose 75 mg/dL (70-105); Potassium 4.2 mmol/L (3.5-5.1); Sodium 141 mmol/L (136-145)
== END 2023-08-28 14:48 | disposition home or self-care (01) ==
LOC: LABBT 14:47
PROVIDERS: ATTEND Specialist
DX: Z01.818 Encounter for other preprocedural examination (principal); K43.2 Incisional hernia without obstruction or gangrene; Z85.3 Personal history of malignant neoplasm of breast
CPT/HCPCS: 80048; 85025; 93005; 93010

== ENCOUNTER 2023-09-04 06:28 | Day surgery (SDC) | payer OTHER ==
[2023-08-28 15:36] VITALS: BMI 32.8
[2023-09-04] MEDS ORDERED: Bupivacaine 0.25% HCL 30 ML VIAL ONE (06:45)
[2023-09-04] MEDS ORDERED: EPINEPHrine 1 MG/ML VIAL ONE (06:45)
[2023-09-04] MEDS ORDERED: PROPOFOL 20 ML ONE (07:05)
[2023-09-04] MEDS ORDERED: Ketorolac Tromethamine 30 MG/ML VIAL ONE (07:06)
[2023-09-04] MEDS ORDERED: Acetaminophen 500 MG TAB ONE (07:07)
[2023-09-04] MEDS ORDERED: Dexamethasone 4 mg/ml Vial ONE (07:11)
[2023-09-04] MEDS ORDERED: Lidocaine 1% PF 5 ML VIAL ONE ×2 (07:11→07:54)
[2023-09-04] MEDS ORDERED: Rocuronium Bromide 10 MG/ML (10ML VIAL) ONE ×2 (07:11→07:54)
[2023-09-04] MEDS ORDERED: Ondansetron PF 4 MG/2 ML Vial ONE ×2 (07:11→07:54)
[2023-09-04] MEDS ORDERED: Sodium Chloride 0.9% 100 ML ONE (07:44)
[2023-09-04] MEDS ORDERED: CEFAZOLIN 2 GM VIAL ONE (07:44)
[2023-09-04] MEDS ORDERED: Dexamethasone 20 MG/5 ML VIAL ONE (07:54)
[2023-09-04] MEDS ORDERED: ePHEDrine Sulfate 50 MG/10 ML VIAL ONE ×2 (07:54→10:00)
[2023-09-04] MEDS ORDERED: PHENYLEPHRINE-NS 100 MCG/ML 10 ML SYRINGE ONE ×2 (07:54→08:13)
[2023-09-04] MEDS ORDERED: PROPOFOL 200 MG/20 ML VIAL ONE (07:54)
[2023-09-04] MEDS ORDERED: fentaNYL PF 100 MCG/2 ML SYRINGE ONE (08:05)
[2023-09-04] MEDS ORDERED: SUGAMMADEX SODIUM 200 MG/2 ML VIAL ONE (09:44)
[2023-09-04] MEDS ORDERED: fentaNYL 50 mcg/mL 1 mL Vial ONE ×2 (09:57→10:41)
[2023-09-04] MEDS ORDERED: HYDROcodone/Acetaminophen 5/325 mg Tablet ONE (11:45)
== END 2023-09-04 12:58 | disposition home or self-care (01) ==
LOC: SDC 06:28
PROVIDERS: ATTEND Specialist
PROC: 0JPT0WZ Removal of Totally Implantable Vascular Access Device from Trunk Subcutaneous Tissue and Fascia, Open Approach (ICD-10-PCS; principal; 2023-09-04)
PROC: 0WUF4JZ Supplement Abdominal Wall with Synthetic Substitute, Percutaneous Endoscopic Approach (ICD-10-PCS; principal; 2023-09-04)
DX: K43.2 Incisional hernia without obstruction or gangrene (principal); I10 Essential (primary) hypertension; I25.10 Atherosclerotic heart disease of native coronary artery without angina pectoris; I42.9 Cardiomyopathy, unspecified; G47.33 Obstructive sleep apnea (adult) (pediatric); E78.5 Hyperlipidemia, unspecified; I86.8 Varicose veins of other specified sites; E11.9 Type 2 diabetes mellitus without complications; I25.2 Old myocardial infarction; Z95.1 Presence of aortocoronary bypass graft; Z90.710 Acquired absence of both cervix and uterus; Z79.899 Other long term (current) drug therapy; Z88.8 Allergy status to other drugs, medicaments and biological substances; Z88.0 Allergy status to penicillin; Z79.82 Long term (current) use of aspirin
CPT/HCPCS: 36416; C1781; J0171; J1100; J1885; J2405; J2704; J3010; J3490; S0020

== ENCOUNTER 2023-09-21 09:12 | Outpatient (CLI) | payer OTHER | END 2023-09-21 09:13 | disposition home or self-care (01) | LOC: BICMAMMO 09:12 | PROVIDERS: ATTEND Radiology Radiation Oncology | DX: Z08 Encounter for follow-up examination after completed treatment for malignant neoplasm (principal); Z98.890 Other specified postprocedural states; Z85.3 Personal history of malignant neoplasm of breast | CPT/HCPCS: G0279 ==

== ENCOUNTER 2024-04-07 10:06 | Outpatient (CLI) | payer OTHER | END 2024-04-07 10:07 | disposition home or self-care (01) | LOC: BICMAMMO 10:06 | PROVIDERS: ATTEND Radiology Radiation Oncology | DX: Z08 Encounter for follow-up examination after completed treatment for malignant neoplasm (principal); Z85.3 Personal history of malignant neoplasm of breast | CPT/HCPCS: 77066; G0279 ==